=== PATIENT | male | born 1945 | race Caucasian/White ===

== ENCOUNTER 2017-01-06 20:00 | Emergency (ER) | payer OTHER ==
[2017-01-06] MEDS ORDERED: ONDANSETRON 4 MG/2 ML VIAL IVPUSH ONE (20:08)
[2017-01-06 20:26] LABS: URINE APPEARANCE CLEAR; URINE BILIRUBIN NEGATIVE (NEGATIVE); URINE BLOOD NEGATIVE (NEGATIVE); URINE COLOR STRAW; URINE GLUCOSE (UA) 1+ (NEGATIVE); URINE KETONE TRACE (NEGATIVE); URINE LEUK ESTERASE NEGATIVE (NEGATIVE); URINE NITRITE NEGATIVE (NEGATIVE); URINE PROTEIN NEGATIVE (NEGATIVE); URINE UROBILINOGEN NEGATIVE E.U./dl (0.2-1.0)
[2017-01-06 20:27] VITALS: PULSE 85; BMI 28.3
--- NOTE | 2017-01-06 20:53 | PDOC ---
History of Present Illness - General Chief Complaint: Pain, Acute Stated Complaint: NAUSEA/VOMITING Time Seen by Provider: 01/06/17 20:07 - History of Present Illness Initial Comments: 01/06/17 20:48 CHIEF COMPLAINT: left flank pain, vomiting HISTORY OF PRESENT ILLNESS: 71 year old male with a history of HTN and colon ca s/p resection x 5 yrs ago, presents to ED with left flank pain, vomiting, and diaphoresis since this afternoon. Patient states he was diagnosed [place] last week and was given medication, but his twin brother and he flew to [facility] for the and left his medications in [place]. He reports that he had 4 episodes of vomiting since this afternoon. He denies any diarrhea or rectal bleeding. He denies any palpitations, chest pain, leg pain, headache, shortness of breath, or fever. No recent travel or sick contacts. PAST MEDICAL HISTORY: as per HPI FAMILY HISTORY: Denies SOCIAL HISTORY: Denies tobacco, alcohol, illicit drug use. SURGICAL HISTORY: as per HPI ALLERGIES: No known drug allergies REVIEW OF SYSTEMS General/Constitutional: Denies fever or chills. Denies weakness, weight change. HEENT: Denies change in vision. Denies ear pain or discharge. Denies sore throat. Cardiovascular: Denies chest pain or shortness of breath. Respiratory: Denies cough, wheezing, or hemoptysis. Gastrointestinal: Nausea/vomiting since this afternoon. Denies diarrhea or constipation. Denies rectal bleeding. Genitourinary: L flank pain, recently diagnosed with kidney stones. Denies dysuria, frequency, or change in urination. Musculoskeletal: Denies joint or muscle swelling or pain. Denies neck or back pain. Skin and breasts: Denies rash or easy bruising. Neurologic: Denies headache, vertigo, loss of consciousness, or loss of sensation. PHYSICAL EXAM General Appearance: Well-appearing, appropriately dressed. No apparent distress. HEENT: EOMI, PERRLA, normal voice. No conjunctival pallor. No photophobia, scleral icterus. Neck: Supple. Trachea midline. No tenderness, rigidity, carotid bruit, stridor , lymphadenopathy, or thyromegaly. Respiratory/Chest: Lungs CTAB. Cardiovascular: RRR. S1, S2. Vascular Pulses: Dorsalis-Pedis (R): 2+, Dorsalis-Pedis (L): 2+ Gastrointestinal/Abdominal: Normal bowel sounds. Abdomen soft, non-distended. No tenderness or rebound tenderness. No organomegaly, pulsatile mass, guarding , hernia, hepatomegaly, splenomegaly. Lymphatic: No adenopathy, tenderness. Musculoskeletal/Extremities: Left flank pain. Normal inspection. FROM of all extremities, normal capillary refill. Pelvis Stable. No tenderness to extremities, pedal edema, swelling, erythema or deformity. Integumentary: Appropriate color, dry, warm. 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 Fully oriented, alert. Appropriate mood/affect. Motor strength 5/5. No appreciable EOM palsy, facial droop or sensory deficit. Past History - Past Medical History Allergies/Adverse Reactions: Allergies Allergy/AdvReac Type Severity Reaction Status Date / Time No Known Allergies Allergy Verified 01/06/17 20:12 Home Medications: Ambulatory Orders Ibuprofen 600 mg PO TID PRN #21 tablet 01/06/17 Tamsulosin HCl [Flomax] 0.4 mg PO DAILY #14 cap.er.24h 01/06/17 Cancer: Yes (colorectal) Kidney Stones: Yes - Psycho/Social/Smoking Cessation Hx Suicidal Ideation: No Smoking History: Unknown if ever smoked Hx Alcohol Use: No Drug/Substance Use Hx: No *Physical Exam - Vital Signs Last Vital Signs Temp Pulse Resp BP Pulse Ox 97.6 F 85 18 156/76 94 L 01/06/17 20:12 01/06/17 20:12 01/06/17 20:12 01/06/17 20:12 01/06/17 20:12 ED Treatment Course - LABORATORY CBC & Chemistry Diagram: 01/06/17 20:51 01/06/17 20:51 Medical Decision Making - Medical Decision Making 01/06/17 20:52 71 yo M with hx of colon cancer s/p resection presents to ED with left flank pain, vomiting, and diaphoresis since this afternoon. -CBC, CMP -UA, Ucx Labs: - WBC 10.4, otherwise unremarkable -30 mg Toradol IVPUSH -Spiral CT eval for stone 01/06/17 22:39 CT results: [id number] obstructing stone to L ureter. 0.4 mg Flomax daily 600 mg ibuprofen prn pain Patient's family states he is going to [place] tomorrow and will follow up with urologist there. *DC/Admit/Observation/Transfer Diagnosis at time of Disposition: Kidney stone - Discharge Dispostion Admit: No - Prescriptions Prescriptions: Tamsulosin HCl [Flomax] 0.4 mg PO DAILY #14 cap.er.24h Ibuprofen 600 mg PO TID PRN #21 tablet PRN Reason: Pain - Referrals Referrals: Giorgi Guadalupe MD [Primary Care Provider] - - Patient Instructions Printed Discharge Instructions: DI for Kidney Stones Additional Instructions: Please take medications as prescribed and follow up with urologist this week. If you experience severe pain to one side, weakness, persistent vomiting or diarrhea, chest pain, shortness of breath, or any new or worsening symptoms, please return to the ER. Print Language: ROMANSH
--- NOTE | 2017-01-06 21:10 | PDOC ---
*Physical Exam - Vital Signs Last Vital Signs Temp Pulse Resp BP Pulse Ox 97.6 F 85 18 156/76 94 L 01/06/17 20:12 01/06/17 20:12 01/06/17 20:12 01/06/17 20:12 01/06/17 20:12 ED Treatment Course - LABORATORY CBC & Chemistry Diagram: 01/06/17 20:51 01/06/17 20:51 - Medications Given in the ED: ED Medications Discontinued Medications Generic Name Dose Route Start Last Admin Trade Name Freq PRN Reason Stop Dose Admin Ondansetron HCl 4 mg 01/06/17 20:08 01/06/17 20:52 Zofran Injection IVPUSH 01/06/17 20:09 4 mg ONCE ONE Administration Medical Decision Making - Medical Decision Making 01/06/17 21:10 agree with care from BOBBY Humphrey *DC/Admit/Observation/Transfer Diagnosis at time of Disposition: Kidney stone - Discharge Dispostion Disposition: HOME Condition at time of disposition: Stable - Prescriptions Prescriptions: Tamsulosin HCl [Flomax] 0.4 mg PO DAILY #14 cap.er.24h Ibuprofen 600 mg PO TID PRN #21 tablet PRN Reason: Pain - Referrals Referrals: Giorgi Guadalupe MD [Primary Care Provider] - - Patient Instructions Printed Discharge Instructions: DI for Kidney Stones Additional Instructions: Please take medications as prescribed and follow up with urologist this week. If you experience severe pain to one side, weakness, persistent vomiting or diarrhea, chest pain, shortness of breath, or any new or worsening symptoms, please return to the ER. Print Language: MICRONESIAN
[2017-01-06 21:38] LABS: BASOPHIL 0.1 % (0-2.0); MCH 31.2 pg (25.7-33.7); MCHC 34.2 g/dl (32.0-35.9); MEAN CELL VOLUME 91.3 fl (80-96); MEAN PLT VOLUME 8.7 fl (7.5-11.1); PLATELET COUNT 207 K/MM3 (134-434); RDW 13.2 % (11.9-15.9); WHITE BLOOD COUNT 10.5 K/mm3 (4.0-10.0)
[2017-01-06 22:16] LABS: ALBUMIN 3.9 g/dl (3.4-5.0); ANION GAP 12 (8-16); CALCIUM 8.9 mg/dL (8.5-10.1); CO2 24 mmol/L (21-32); CREATININE 1.1 mg/dL (0.7-1.3); GLUCOSE,RANDOM 135 mg/dL (74-106); SGOT/AST 19 U/L (15-37); SGPT/ALT 30 U/L (12-78)
[2017-01-06 22:18] LABS: ALK PHOS 147 U/L (45-117); BILIRUBIN,TOTAL 0.4 mg/dL (0.2-1.0); TOT PROT 7.3 g/dl (6.4-8.2)
[2017-01-06] MEDS ORDERED: KETOROLAC TROMETHAMINE 30 MG/1 ML VIAL IVPUSH ONE (22:23)
[2017-01-06] MEDS ORDERED: KETOROLAC TROMETHAMINE 30 MG/1 ML VIAL ONE ×2 (22:43→22:58)
[2017-01-06] MEDS ORDERED: TAMSULOSIN HCL 0.4 MG CAP.ER.24H (FP) PO ONE (23:14)
[2017-01-06] MEDS ORDERED: TAMSULOSIN HCL 0.4 MG CAP.ER.24H (FP) ONE (23:40)
[2017-01-06 23:52] VITALS: BP 146/72; TEMP 98.1
== END 2017-01-06 23:48 | disposition home or self-care (01) ==
LOC: JER 20:00
PROC: 3E0333Z Introduction of Anti-inflammatory into Peripheral Vein, Percutaneous Approach (ICD-10-PCS; principal; 2017-01-06)
PROC: 3E033GC Introduction of Other Therapeutic Substance into Peripheral Vein, Percutaneous Approach (ICD-10-PCS; 2017-01-06)
DX: N20.0 Calculus of kidney (principal); Z87.442 Personal history of urinary calculi; I10 Essential (primary) hypertension; Z85.038 Personal history of other malignant neoplasm of large intestine
CPT/HCPCS: 36415; 74176; 80053; 81003; 85025; 87086; 99282-25

== ENCOUNTER 2018-08-14 13:25 | Inpatient (IN) | payer OTHER ==
[2018-08-14] MEDS ORDERED: ASPIRIN 81 MG CHEWABLE TABLETS PO ONE (13:49)
[2018-08-14] MEDS ORDERED: ASPIRIN 81 MG CHEWABLE TABLETS ONE (14:11)
--- NOTE | 2018-08-14 14:23 | PDOC ---
History of Present Illness - General Chief Complaint: Chest Pain Stated Complaint: CHEST PAIN Time Seen by Provider: 08/14/18 13:52 - History of Present Illness Initial Comments: 72yo M with history of colon cancer, HTN, kidney stone presenting with chest pain that started around 11am. Pain is constant and gradually worsening, rated 4 -5/10 at first and now 8-9/10. Patient reports 3 episodes of NBNB vomiting. He has never had pain like this before. The pain does not radiate, and worsens upon palpation and taking a deep breath. Nothing makes the pain better or worse. No history of ulcers, H. pylori, or recent NSAID use. Last bowel movement was today and was a normal formed brown stool. Previous abdominal surgery 6 years ago. Reports cardiac workup with previous negative stress test about a year ago. Denies previous history of WI. Positive family history of WI, twin brother had WI at age 69. No fevers or chills. Past History - Past Medical History Allergies/Adverse Reactions: Allergies Allergy/AdvReac Type Severity Reaction Status Date / Time No Known Allergies Allergy Verified 08/14/18 13:29 Home Medications: Ambulatory Orders Ibuprofen 600 mg PO TID PRN #21 tablet 01/06/17 Tamsulosin HCl [Flomax] 0.4 mg PO DAILY #14 cap.er.24h 01/06/17 Cancer: Yes (colorectal) COPD: No HTN: Yes Kidney Stones: Yes - Suicide/Smoking/Psychosocial Hx Smoking History: Never smoked Hx Alcohol Use: No Drug/Substance Use Hx: No Review of Systems - Review of Systems Comments:: Constitutional: no fever, no chills Cardiovascular: +chest pain, no palpitations Respiratory: no cough, no shortness of breath Gastrointestinal: no abdominal pain, +nausea, +vomiting Genitourinary: no dysuria, no frequency Musculoskeletal: no myalgia, no arthralgia Skin: no rash, no itching Neurologic: no headache, no dizziness *Physical Exam - Vital Signs Last Vital Signs Temp Pulse Resp BP Pulse Ox 56 L 18 154/79 99 08/14/18 13:27 08/14/18 13:27 08/14/18 13:27 08/14/18 13:27 - Physical Exam Comments: General: Awake, alert, and fully oriented, in no acute distress Head: no signs of trauma Eyes: EOMI, sclera anicteric ENT: Moist mucus membranes, Neck: Normal ROM, supple Lungs: Lungs clear, Normal breath sounds Cardio: Regular rhythm, S1 and S2 present Abdomen: Tender to palpation in epigastrium and RUQ; Soft, no guarding, no rebound, no masses Extremities: Normal range of motion, Distal pulses present SKIN: Warm, Dry, normal turgor Neurologic: Cranial nerves II through XII grossly intact. Normal speech Heart Score/ECG Review - History History: Moderately suspicious - Electrocardiogram EKG: Normal - Age Age: >/= 65 - Risk Factors Risk Factors Heart Score: Yes Positive family hx of cardiac disease Based on the list above the patient has:: 1-2 risk factors - Troponin Troponin: </= normal limit - Score Heart Score - Total: 4 ED Treatment Course - LABORATORY CBC & Chemistry Diagram: 08/14/18 14:17 08/14/18 14:17 Medical Decision Making - Medical Decision Making 72yo M with history of colon cancer, HTN, kidney stone presenting with chest pain that started around 11am. -Pain is located more epigastric/RUQ on exam: Given history of colon CA, ordered CT abd/pelvis and RUQ ultrasound -Labs: CBC, CMP, Lipase, PT/INR, Cardiac Profile -EKG: rate 55, QTc 413, no ST d/e 08/14/18 15:14 Patient endorsing continued pain after receiving zofran, pepcid, maalox; Ordered morphine 2 08/14/18 16:17 No leukocytosis or anemia. Lipase normal. Tpn negative. US with cholelithiasis and fatty infiltration of the liver 08/14/18 16:22 Patient reports 7/10 pain. Ordered morphine 4. CT negative for acute pathology, shows "The gallbladder is mildly distended. There are multiple noncalcified gallstones. " Discussed case with Dr. Simmons who will accept patient for admission. 08/14/18 17:56 Received call from Printer Floor Covering Assistant, Dr. Teixeira. Discussed case and put in order for TSH and cholesterol. 08/14/18 20:27 *DC/Admit/Observation/Transfer Diagnosis at time of Disposition: Biliary colic Chest pain Qualifiers: Chest pain type: unspecified Qualified Code(s): R07.9 - Chest pain, unspecified - Discharge Dispostion Decision to Admit order: Yes - Referrals - Patient Instructions - Post Discharge Activity
[2018-08-14 14:26] LABS: BASO % 0.3 % (0-2.0); EOS % 0.8 % (0-4.5); HEMATOCRIT 42.6 % (35.4-49); HEMOGLOBIN 14.2 GM/dL (11.7-16.9); LYMPH % 16.1 % (8-40); MCH 31.2 pg (25.7-33.7); MCHC 33.4 g/dl (32.0-35.9); MEAN CELL VOLUME 93.3 fl (80-96); MEAN PLT VOLUME 8.2 fl (7.5-11.1); MONO % 6.2 % (3.8-10.2); NEUT % 76.6 % (42.8-82.8); PLATELET COUNT 194 K/MM3 (134-434); RBC 4.56 M/mm3 (4.00-5.60); RDW 13.4 % (11.9-15.9); WHITE BLOOD COUNT 6.8 K/mm3 (4.0-10.0)
[2018-08-14] MEDS ORDERED: MAG HYDROX/AL HYDROX/SIMETH -MYLANTA- ORAL SUSPENSION PO ONE (14:26)
[2018-08-14] MEDS ORDERED: FAMOTIDINE 20 MG/50 ML IVPB 20 MG/50 ML MG IVPB ONE ×2 (14:26→14:33)
[2018-08-14] MEDS ORDERED: ONDANSETRON 4 MG/2 ML VIAL IVPUSH ONE (14:26)
[2018-08-14] MEDS ORDERED: SODIUM CHLORIDE 1,000 ML IV STA (14:32)
[2018-08-14] MEDS ORDERED: MAG HYDROX/AL HYDROX/SIMETH 30 ML UNIT-DOSE CUP ONE ×4 (14:33→19:57)
[2018-08-14] MEDS ORDERED: ONDANSETRON 4 MG/2 ML VIAL ONE (14:33)
[2018-08-14 14:35] LABS: INR 1.03 (0.83-1.09); PROTHROMBIN TIME (PATIENT) 12.1 SEC (9.7-13.0)
--- NOTE | 2018-08-14 14:45 | PDOC ---
Attending Attestation - Resident Resident Name: Sarita Hobson - ED Attending Attestation I have performed the following: I have examined & evaluated the patient, The case was reviewed & discussed with the resident, I agree w/resident's findings & plan, Exceptions are as noted - HPI HPI: 08/14/18 14:39 72-year-old male with history of colon cancer in remission, hypertension, renal colic presents with sudden onset of upper abdominal pain and subxiphoid chest pain since 11:00 AM today. Patient woke up in his usual state of health and with no complaints. We'll he was showering, he said noticed a sudden onset of pressure-like pain. States that it radiates to the upper abdomen. The pain is making him feel short of breath. Patient reports he is currently not on chemotherapy or radiation therapy. States that his last colonoscopy was 4 years ago. Denies fevers or chills. Does report that the pain is making him feel nauseous and vomiting 3 times today. No diarrhea. The patient is also concerned about cardiac as his twin brother had from myocardial infarction 2 years ago. Because of the pain, the patient came into the ER. - Physicial Exam PE: 08/14/18 14:41 GENERAL: Awake, alert, and fully oriented, in no acute distress HEAD: No signs of trauma EYES: EOMI, sclera anicteric, conjunctiva clear ENT: Auricles normal inspection, hearing grossly normal, nares patent,Moist mucosa NECK: Normal ROM, supple LUNGS: Breath sounds equal, clear to auscultation bilaterally. No wheezes, and no crackles HEART: Regular rate and rhythm, normal S1 and S2, no murmurs, rubs or gallops ABDOMEN: No guarding, no rebound. No masses. TTP LUQ, epigastric, RUQ. EXTREMITIES: Normal range of motion, no edema. No clubbing or cyanosis. No cords, erythema, or tenderness NEUROLOGICAL: Cranial nerves II through XII grossly intact. Normal speech, normal gait SKIN: Warm, Dry, normal turgor, no rashes or lesions noted. - Medical Decision Making 08/14/18 14:45 Vital Signs Temp Pulse Resp BP Pulse Ox 56 L 18 154/79 99 08/14/18 13:27 08/14/18 13:27 08/14/18 13:27 08/14/18 13:27 The patient is coming with epigastric pain. I suspect this is likely more GI than acute coroners syndrome. However, given strong family history, we'll need to rule out myocardial infarction. Given his colon cancer history, we'll need to investigate upper abdominal pain and vomiting with CAT scan of abdomen pelvis. Rule out bowel obstruction or tumor burden. We'll also evaluate right upper quadrant with ultrasound rule out acute cholecystitis. The patient should be evaluated and likely admitted for myocardial infarction workup if GI workup is negative.. 08/14/18 16:32 CBC, BMP 08/14/18 14:17 08/14/18 14:17 CMP Sodium 140 mmol/L (136-145) 08/14/18 14:17 Potassium 3.9 mmol/L (3.5-5.1) 08/14/18 14:17 Chloride 106 mmol/L (98-107) 08/14/18 14:17 Carbon Dioxide 26 mmol/L (21-32) 08/14/18 14:17 Anion Gap 7 MMOL/L (8-16) L 08/14/18 14:17 BUN 25 mg/dL (7-18) H 08/14/18 14:17 Creatinine 0.9 mg/dL (0.55-1.3) 08/14/18 14:17 Creat Clearance w eGFR > 60 (>60) 08/14/18 14:17 Random Glucose 121 mg/dL (74-106) H 08/14/18 14:17 Calcium 8.8 mg/dL (8.5-10.1) 08/14/18 14:17 Magnesium 2.3 mg/dL (1.8-2.4) 08/14/18 14:17 Total Bilirubin 0.3 mg/dL (0.2-1) 08/14/18 14:17 AST 22 U/L (15-37) 08/14/18 14:17 ALT 37 U/L (13-61) 08/14/18 14:17 Alkaline Phosphatase 129 U/L (45-117) H 08/14/18 14:17 Creatine Kinase 82 IU/L (26-308) 08/14/18 14:17 Troponin I < 0.02 ng/ml (0.00-0.05) 08/14/18 14:17 Total Protein 7.0 g/dl (6.4-8.2) 08/14/18 14:17 Albumin 3.7 g/dl (3.4-5.0) 08/14/18 14:17 Lipase Cancelled 08/14/18 14:29 Ultrasound reviewed. Cholethiasis. Heart Score/ECG Review #1 ECG reviewed & interpreted by me at: 13:25 08/14/18 16:08 NSR 55, no std/juanis, T wave III, Q wave III, QTC 413 msec
[2018-08-14 14:53] LABS: ALBUMIN 3.7 g/dl (3.4-5.0); ALK PHOS 129 U/L (45-117); ANION GAP 7 MMOL/L (8-16); BILIRUBIN,TOTAL 0.3 mg/dL (0.2-1); BLOOD UREA NITROGEN 25 mg/dL (7-18); CALCIUM 8.8 mg/dL (8.5-10.1); CHLORIDE 106 mmol/L (98-107); CO2 26 mmol/L (21-32); CREATININE 0.9 mg/dL (0.55-1.3); GLUCOSE,RANDOM 121 mg/dL (74-106); MAGNESIUM 2.3 mg/dL (1.8-2.4); POTASSIUM 3.9 mmol/L (3.5-5.1); SGOT/AST 22 U/L (15-37); SGPT/ALT 37 U/L (13-61); SODIUM 140 mmol/L (136-145)
[2018-08-14 15:00] LABS: LIPASE 109 U/L (73-393)
[2018-08-14] MEDS ORDERED: morphine CARPU-JECT 2 MG/1 ML DISP.SYRIN IVPUSH ONE ×2 (15:19→16:56)
[2018-08-14] MEDS ORDERED: MORPHINE SULFATE 2 MG/ML VIAL ONE ×2 (15:47→17:17)
[2018-08-14] MEDS ORDERED: morphine CARPU-JECT 4 MG/1 ML DISP.SYRIN IVPUSH ONE (17:40)
[2018-08-14] MEDS ORDERED: morphine SULFATE 4 MG/ML VIAL ONE (17:49)
--- NOTE | 2018-08-14 18:07 | HP ---
CHIEF COMPLAINT: Epigastric Abdominal pain x 1 day PCP: Dr Degroot HISTORY OF PRESENT ILLNESS: Pt is a 72yo M with PMHx of colon cancer, HTN, kidney stone presenting with epigastric pain that started around 11am. Pain was constant and gradually worsening, initially 3-4/10 then 8-9/10. Pt had a normal brown well formed bowel movement thia am then egg and cheese sandwich around 930 after which the pain begun. There was associated 3 episodes of NBNB clear vomiting. No associated diaphoresis, no radiation to the arm, but pt feels like the pain is moving to his back. No hx of similar pain in past. Pt thinks there is associated SOB due to the pain, but denies chest pain, palpitations or leg swelling. No fevers or chills. No known relieving factors prior to coming to the ED, where he received morphine and was pain free when I saw him. Previous abdominal surgery 6 years ago. Reports cardiac workup with previous negative stress test about a year ago. Denies previous history of MN. Positive family history of MN, in twin brother that was diabetic and had MN at age 69. ER course was notable for: (1) EKG-55 sinus bradycardia, 1st degree heart block, no ARIAS/STD, QTc-413 (2) CTap w/contrast: Small hiatal hernia, Mild fatty change in liver. Gall bladder is mildly distended. There are multiple non calcified gall stones. Moderate amount of stool in colon.No evidence of intestinal obstruction (3) Limited US: RUQ- cholelithiasis, no bile duct dilation (4)Lipase-1.0, WBC-6.8, H&H-14.2/42.6, BUN/Cr-25/0.9 Recent Travel: PAST MEDICAL HISTORY: colon cancer, HTN, kidney stone PAST SURGICAL HISTORY: Hemicolectomy 6 years ago Social History: Smoking: Denies Alcohol:Denies Drugs: Denies Family History: Allergies No Known Allergies Allergy (Verified 08/14/18 13:29) HOME MEDICATIONS: Home Medications Medication Instructions Recorded Ibuprofen 600 mg PO TID PRN #21 tablet 01/06/17 Tamsulosin HCl [Flomax] 0.4 mg PO DAILY #14 cap.er.24h 01/06/17 REVIEW OF SYSTEMS CONSTITUTIONAL: Absent: fever, chills, diaphoresis, generalized weakness, malaise, loss of appetite, weight change HEENT: Absent: rhinorrhea, nasal congestion, throat pain, throat swelling, difficulty swallowing, mouth swelling, ear pain, eye pain, visual changes CARDIOVASCULAR: Absent: chest pain, syncope, palpitations, irregular heart rate, lightheadedness , peripheral edema RESPIRATORY: Absent: cough, shortness of breath, dyspnea with exertion, orthopnea, wheezing, stridor, hemoptysis GASTROINTESTINAL: Absent: abdominal pain, abdominal distension, nausea, vomiting, diarrhea, constipation, melena, hematochezia GENITOURINARY: Absent: dysuria, frequency, urgency, hesitancy, hematuria, flank pain, genital pain MUSCULOSKELETAL: Absent: myalgia, arthralgia, joint swelling, back pain, neck pain SKIN: Absent: rash, itching, pallor HEMATOLOGIC/IMMUNOLOGIC: Absent: easy bleeding, easy bruising, lymphadenopathy, frequent infections ENDOCRINE: Absent: unexplained weight gain, unexplained weight loss, heat intolerance, cold intolerance NEUROLOGIC: Absent: headache, focal weakness or paresthesias, dizziness, unsteady gait, seizure, mental status changes, bladder or bowel incontinence PSYCHIATRIC: Absent: anxiety, depression, suicidal or homicidal ideation, hallucinations. PHYSICAL EXAMINATION Vital Signs - 24 hr 08/14/18 08/14/18 13:27 17:55 Pulse Rate 56 L Pulse Rate [ 66 Apical] Respiratory 18 20 Rate Blood Pressure 154/79 Blood Pressure 155/87 [Left Arm] O2 Sat by Pulse 99 97 Oximetry (%) GENERAL: Awake, alert, and fully oriented, in no acute distress. EYES: Pupils equal, round and reactive to light, extraocular movements intact, EARS, NOSE, THROAT:Dry mucous membranes. NECK: Normal range of motion, supple without lymphadenopathy, JVD, or masses. LUNGS: Breath sounds equal, clear to auscultation bilaterally. HEART: Regular rate and rhythm, normal S1 and S2 ABDOMEN: Soft, tender suprapubic area, negative sheth's sign, not distended, normoactive bowel sounds, No CVA tenderness MUSCULOSKELETAL: Normal range of motion at all joints. Mild spinal tenderness lumbar area. No CVA tenderness. LOWER EXTREMITIES: 2+ pulses, warm, well-perfused. No calf tenderness. No peripheral edema. NEUROLOGICAL: Cranial nerves II-XII intact. Normal speech. Muscle tone and Strength 5/5 globally, normal sensation, symmetric face, no lateralizing signs CBC, BMP 08/14/18 14:17 08/14/18 14:17 Laboratory Results - last 24 hr 08/14/18 08/14/18 08/14/18 14:17 14:17 14:17 WBC 6.8 RBC 4.56 Hgb 14.2 Hct 42.6 MCV 93.3 MCH 31.2 MCHC 33.4 RDW 13.4 Plt Count 194 MPV 8.2 Absolute Neuts (auto) 5.2 Neutrophils % 76.6 Lymphocytes % 16.1 D Monocytes % 6.2 Eosinophils % 0.8 D Basophils % 0.3 Nucleated RBC % 0 PT with INR 12.10 INR 1.03 Sodium 140 Potassium 3.9 Chloride 106 Carbon Dioxide 26 Anion Gap 7 L BUN 25 H Creatinine 0.9 Creat Clearance w eGFR > 60 Random Glucose 121 H Calcium 8.8 Magnesium 2.3 Total Bilirubin 0.3 AST 22 ALT 37 Alkaline Phosphatase 129 H Creatine Kinase 82 Troponin I < 0.02 Total Protein 7.0 Albumin 3.7 Lipase 109 08/14/18 14:29 WBC RBC Hgb Hct MCV MCH MCHC RDW Plt Count MPV Absolute Neuts (auto) Neutrophils % Lymphocytes % Monocytes % Eosinophils % Basophils % Nucleated RBC % PT with INR INR Sodium Potassium Chloride Carbon Dioxide Anion Gap BUN Creatinine Creat Clearance w eGFR Random Glucose Calcium Magnesium Total Bilirubin AST ALT Alkaline Phosphatase Creatine Kinase Troponin I Total Protein Albumin Lipase Cancelled ASSESSMENT/PLAN: Pt is a 72yo M with PMHx of colon cancer, HTN, kidney stone presenting with epigastric pain that started around 11am. # Epigastric pain R/o ACS Hiatal hernia noted on imaging Absent murphys Initial trops -ve Repeat trops Card- Dr Teixeira Sx- Dr Matias CTAP/w contrast- Cholelithiasis , no evidence of pancreatitis, There are multiple non calcified gall stones. Moderate amount of stool in colon.No evidence of intestinal obstruction NPO now IVF NS @75/hr x1 bag Morphine 1mg Q3h Echo EKG am Hx colon cancer No hx of melena or weight loss Appears stable HTN Pending confirmation of home meds Hx kidney stone No flank pain/ no dysuria/ no hematuria No stones on CT FEN NS @75/hr Monitor lytes and replete as needed NPO for now PPX Hold heparin SCDs Dispo; Tele obs Visit type - Emergency Visit Emergency Visit: Yes Care time: The patient presented to the Emergency Department on the above date and was hospitalized for further evaluation of their emergent condition. - New Patient This patient is new to me today: Yes Date on this admission: 08/14/18 - Critical Care Critical Care patient: No Hospitalist Screening - Colonoscopy Questionnaire Colonoscopy Questionnaire: Colonoscopy Questionnaire - Patient: 50 - 75 years old and never had a screening colonoscopy: Yes History of colon or rectal polyps, or CA: Yes History of IBD, Crohn's disease or UC: Unknown History of abdominal radiation therapy as a child: Unknown - Relative: 1 with colon or rectal CA, or polyps at age 60 or younger: Unknown Colon or rectal CA diagnosed at age 45 or younger: Unknown Multiple relatives with colon or rectal CA: Unknown - Outcome: Screening Result: Positive Screen
--- NOTE | 2018-08-14 18:14 | PN ---
Teaching Attending Note Name of Resident: Roseanna Murphy ATTENDING PHYSICIAN STATEMENT I saw and evaluated the patient. I reviewed the resident's note and discussed the case with the resident. I agree with the resident's findings and plan as documented. SUBJECTIVE: Patient is a 72yo M with history of colon cancer, HTN, kidney stone presenting with chest pain that started around 11am. with c/o having RuQ pain. OBJECTIVE: Vital Signs Temperature Pulse Rate 66 08/14/18 17:55 Respiratory Rate 20 08/14/18 17:55 Blood Pressure 155/87 08/14/18 17:55 O2 Sat by Pulse Oximetry (%) 97 08/14/18 17:55 GENERAL: Awake, alert, and fully oriented, in no acute distress. HEAD: Normal with no signs of trauma. EYES: Pupils equal, round and reactive to light, extraocular movements intact, sclera anicteric, conjunctiva clear. EARS, NOSE, THROAT: Ears normal, oropharynx clear without exudates. Moist mucous membranes. NECK: Normal range of motion, supple without lymphadenopathy, JVD, or masses. LUNGS: Breath sounds equal, clear to auscultation bilaterally. No wheezes, and no crackles. No accessory muscle use. HEART: Regular rate and rhythm, normal S1 and S2 without murmur, rub or gallop. ABDOMEN: Soft, RUQ pain , not distended, normoactive bowel sounds, no guarding, no rebound, no masses. No hepatomegaly or splenomegaly. MUSCULOSKELETAL: Normal range of motion at all joints. No bony deformities or tenderness. No CVA tenderness. EXTREMITIES: 2+ pulses, warm, well-perfused. No cyanosis. No clubbing. No peripheral edema. NEUROLOGICAL: Cranial nerves II-XII intact. Normal speech. PSYCHIATRIC: Cooperative. Good eye contact. Appropriate mood and affect. SKIN: Warm, dry, normal turgor, no rashes or lesions noted, normal capillary refill. CBCD WBC 6.8 K/mm3 (4.0-10.0) 08/14/18 14:17 RBC 4.56 M/mm3 (4.00-5.60) 08/14/18 14:17 Hgb 14.2 GM/dL (11.7-16.9) 08/14/18 14:17 Hct 42.6 % (35.4-49) 08/14/18 14:17 MCV 93.3 fl (80-96) 08/14/18 14:17 MCHC 33.4 g/dl (32.0-35.9) 08/14/18 14:17 RDW 13.4 % (11.9-15.9) 08/14/18 14:17 Plt Count 194 K/MM3 (134-434) 08/14/18 14:17 MPV 8.2 fl (7.5-11.1) 08/14/18 14:17 CMP Sodium 140 mmol/L (136-145) 08/14/18 14:17 Potassium 3.9 mmol/L (3.5-5.1) 08/14/18 14:17 Chloride 106 mmol/L (98-107) 08/14/18 14:17 Carbon Dioxide 26 mmol/L (21-32) 08/14/18 14:17 Anion Gap 7 MMOL/L (8-16) L 08/14/18 14:17 BUN 25 mg/dL (7-18) H 08/14/18 14:17 Creatinine 0.9 mg/dL (0.55-1.3) 08/14/18 14:17 Creat Clearance w eGFR > 60 (>60) 08/14/18 14:17 Random Glucose 121 mg/dL (74-106) H 08/14/18 14:17 Calcium 8.8 mg/dL (8.5-10.1) 08/14/18 14:17 Total Bilirubin 0.3 mg/dL (0.2-1) 08/14/18 14:17 AST 22 U/L (15-37) 08/14/18 14:17 ALT 37 U/L (13-61) 08/14/18 14:17 Alkaline Phosphatase 129 U/L (45-117) H 08/14/18 14:17 Total Protein 7.0 g/dl (6.4-8.2) 08/14/18 14:17 Albumin 3.7 g/dl (3.4-5.0) 08/14/18 14:17 CARDIAC ENZYMES Creatine Kinase 82 IU/L (26-308) 08/14/18 14:17 Troponin I < 0.02 ng/ml (0.00-0.05) 08/14/18 14:17 Home Medications Medication Instructions Recorded Ibuprofen 600 mg PO TID PRN #21 tablet 01/06/17 Tamsulosin HCl [Flomax] 0.4 mg PO DAILY #14 cap.er.24h 01/06/17 US:Fatthy Liver, Cholethiasis EKG: rate 55, QTc 413, no ST elevation or depression. ASSESSMENT AND PLAN: Patient is a 72yo M with history of colon cancer, HTN, kidney stone presenting with chest pain that started around 11am. # Acute Cp r/o Acs, Ce q6 x2 sets, ekg in am, 1st set negative will repeat another troponin # acute biliary colic due to cholethiasis , IVF, surgical cancer Florencio # Hx of Colon Ca # Hx of HTN # Hx of Kidney stone. DVT Px:
[2018-08-14] MEDS ORDERED: MORPHINE SULFATE 2 MG/ML VIAL IVPUSH PRN (19:24)
[2018-08-14] MEDS: SODIUM CHLORIDE 1,000 ML IV SCH (19:58)
--- NOTE | 2018-08-14 22:05 | CONSULT ---
Consult Consult Specialty:: General Surgery Referred by:: Dr. Simmons Reason for Consultation:: possible cholecystitis - History of Present Illness Chief Complaint: abdominal pain, n/v History of Present Illness: 72yo M with HTN, s/p partial distal colectomy for "tumor" which was not cancer after colonoscopy 6 years ago, with h/o urolithiasis, presents with band-like abdominal pain across mid-abdomen starting ~11am today, associated with 3 episodes nb/nb vomiting and slight subjective fever. He had breakfast this morning of turkey "theron" and cheese and sweet coffee, then showered and noted pain across his mid-abdomen while doing so. He got dressed and went to [employer], where the pain intensified, and after he got home, he vomited 3 times. His is a nurse and urged him to come to ED. He has not had po since this morning. He has had IVF and pain medication in the ER, with complete resolution of his pain and tenderness. CT showed gallstones without ductal dilation, hiatal hernia , no appendicitis, and presence of staple line in sigmoid/colorectal region. US confirms multiple gallstones, normal cbd, no mention of stigmata of cholecystitis. His labs are normal, though lipase was cancelled, except for one LFT slightly over normal. No UA on chart. He is seen and examined resting comfortably in ED, with no current complaints. Surgery was asked to assess. - History Source History Provided By: Patient Limitations to Obtaining History: No Limitations - Past Medical History Cardio/Vascular: Yes: HTN Pulmonary: Yes: Asthma (as child only) Gastrointestinal: Yes: Other (benign tumor/?large polyp in sigmoid colon) Renal/: Yes: Renal Calculi - Past Surgical History Past Surgical History: Yes: Colectomy (laparoscopic partial left/sigmoidectomy w /colorectal anastomosis [address] Logan at [facility]), Colonoscopy - Alcohol/Substance Use Hx Alcohol Use: Yes (rarely) History of Substance Use: reports: None - Smoking History Smoking history: Never smoked Have you smoked in the past 12 months: No - Social History ADL: Independent Home Medications - Allergies Allergies/Adverse Reactions: Allergies Allergy/AdvReac Type Severity Reaction Status Date / Time No Known Allergies Allergy Verified 08/14/18 13:29 - Home Medications Home Medications: Ambulatory Orders Ibuprofen 600 mg PO TID PRN #21 tablet 01/06/17 Tamsulosin HCl [Flomax] 0.4 mg PO DAILY #14 cap.er.24h 01/06/17 Home Medications (free text): blood pressure pill, changed 2m ago to 20mg daily , does not know name Family Disease History - Family Disease History Family History: Unremarkable (noncontributory) Review of Systems - Review of Systems Constitutional: reports: Fever (little subjective). denies: Chills Eyes: reports: Other (uses reading glasses). denies: Recent Change in Vision HENT: denies: Difficult Swallowing, Throat Pain Neck: denies: Swollen Glands, Tenderness Cardiovascular: denies: Chest Pain, Palpitations Respiratory: denies: Cough, SOB Gastrointestinal: reports: Abdominal Pain (with hpi), Nausea, Vomiting (with hpi ). denies: Constipation, Diarrhea, Vomiting Blood Genitourinary: reports: Flank Pain (occasionally right). denies: Burning, Dysuria Musculoskeletal: reports: Back Pain (occasionally). denies: Joint Pain, Muscle Pain Integumentary: denies: Change in Color, Rash Neurological: reports: Headache (when he hasn't taken BP med, sometimes). denies: Dizziness Psychiatric: denies: Anxiety, Depression Physical Exam Vital Signs: Vital Signs Temperature Pulse Rate 66 08/14/18 17:55 Respiratory Rate 20 08/14/18 17:55 Blood Pressure 155/87 08/14/18 17:55 O2 Sat by Pulse Oximetry (%) 97 08/14/18 17:55 Constitutional: Yes: Well Nourished, No Distress, Calm Eyes: Yes: Conjunctiva Clear, EOM Intact. No: Sclera Icterus HENT: Yes: Atraumatic, Normocephalic Neck: Yes: Supple, Trachea Midline Cardiovascular: Yes: Regular Rate and Rhythm Respiratory: Yes: Regular, CTA Bilaterally Gastrointestinal: Yes: Normal Bowel Sounds, Soft, Hernia (tiny umbilical palpable; small diastasis noted under umbilical scar on valsalva, nontender). No: Tenderness (had pain meds - pain and tenderness are "gone"), Tenderness, Epigastrium ...Rectal Exam: Yes: Deferred Renal/: No: CVA Tenderness - Left, CVA Tenderness - Right Musculoskeletal: No: Joint Stiffness, Joint Swelling Extremities: No: Cool, Cyanosis Edema: No Peripheral Pulses WNL: Yes Integumentary: No: Jaundice, Rash Neurological: Yes: Alert, Oriented Psychiatric: Yes: Alert, Oriented Labs: CBC, BMP 08/14/18 14:17 08/14/18 14:17 CMP Sodium 140 mmol/L (136-145) 08/14/18 14:17 Potassium 3.9 mmol/L (3.5-5.1) 08/14/18 14:17 Chloride 106 mmol/L (98-107) 08/14/18 14:17 Carbon Dioxide 26 mmol/L (21-32) 08/14/18 14:17 Anion Gap 7 MMOL/L (8-16) L 08/14/18 14:17 BUN 25 mg/dL (7-18) H 08/14/18 14:17 Creatinine 0.9 mg/dL (0.55-1.3) 08/14/18 14:17 Creat Clearance w eGFR > 60 (>60) 08/14/18 14:17 Random Glucose 121 mg/dL (74-106) H 08/14/18 14:17 Calcium 8.8 mg/dL (8.5-10.1) 08/14/18 14:17 Magnesium 2.3 mg/dL (1.8-2.4) 08/14/18 14:17 Total Bilirubin 0.3 mg/dL (0.2-1) 08/14/18 14:17 AST 22 U/L (15-37) 08/14/18 14:17 ALT 37 U/L (13-61) 08/14/18 14:17 Alkaline Phosphatase 129 U/L (45-117) H 08/14/18 14:17 Creatine Kinase 82 IU/L (26-308) 08/14/18 14:17 Troponin I < 0.02 ng/ml (0.00-0.05) 08/14/18 14:17 Total Protein 7.0 g/dl (6.4-8.2) 08/14/18 14:17 Albumin 3.7 g/dl (3.4-5.0) 08/14/18 14:17 Lipase Cancelled 08/14/18 14:29 INR, PTT INR 1.03 (0.83-1.09) 08/14/18 14:17 Imaging - Results Cat Scan: Report Reviewed, Image Reviewed (images reviewed - gallstones, tiny umbilical/incisional hernia with fat, sb loop tented underneath but not in hernia, no bowel dilation/obstruction) Ultrasound: Report Reviewed, Image Reviewed (images personally reviewed, multiple gallstones, no pericholecystic fluid, distended gb, cbd normal, wall does not appear thick but not measured) Problem List - Problems (1) Calculus of gallbladder without cholecystitis without obstruction Assessment/Plan: admitted to medicine NPO/IVF - continue IV hydration trend labs including lipase gallstones, but no clear cholecystitis pain/tenderness now completely resolved will reassess after am labs check UA to r/o blood Code(s): K80.20 - CALCULUS OF GALLBLADDER W/O CHOLECYSTITIS W/O OBSTRUCTION (2) Periumbilical pain Code(s): R10.33 - PERIUMBILICAL PAIN (3) Nausea and vomiting Code(s): R11.2 - NAUSEA WITH VOMITING, UNSPECIFIED Qualifiers: Vomiting type: unspecified Vomiting Intractability: non-intractable Qualified Code(s): R11.2 - Nausea with vomiting, unspecified (4) Hypertension Code(s): I10 - ESSENTIAL (PRIMARY) HYPERTENSION Qualifiers: Hypertension type: essential hypertension Qualified Code(s): I10 - Essential (primary) hypertension
[2018-08-15 07:36] LABS: BASO % 0.1 % (0-2.0); EOS % 0.1 % (0-4.5); HEMATOCRIT 40.7 % (35.4-49); HEMOGLOBIN 13.5 GM/dL (11.7-16.9); LYMPH % 17.8 % (8-40); MCH 30.8 pg (25.7-33.7); MCHC 33.2 g/dl (32.0-35.9); MEAN CELL VOLUME 92.7 fl (80-96); MEAN PLT VOLUME 8.5 fl (7.5-11.1); MONO % 9.4 % (3.8-10.2); NEUT % 72.6 % (42.8-82.8); PLATELET COUNT 175 K/MM3 (134-434); RBC 4.39 M/mm3 (4.00-5.60); RDW 13.3 % (11.9-15.9)
[2018-08-15 08:51] LABS: ALBUMIN 3.3 g/dl (3.4-5.0); ALK PHOS 125 U/L (45-117); ANION GAP 9 MMOL/L (8-16); BILIRUBIN,TOTAL 0.8 mg/dL (0.2-1); BLOOD UREA NITROGEN 20 mg/dL (7-18); CALCIUM 8.1 mg/dL (8.5-10.1); CHLORIDE 106 mmol/L (98-107); CO2 24 mmol/L (21-32); CREATININE 0.8 mg/dL (0.55-1.3); GLUCOSE,RANDOM 93 mg/dL (74-106); MAGNESIUM 2.3 mg/dL (1.8-2.4); PHOSPHOROUS 2.9 mg/dL (2.5-4.9); POTASSIUM 3.9 mmol/L (3.5-5.1); SGOT/AST 130 U/L (15-37); SGPT/ALT 190 U/L (13-61); SODIUM 140 mmol/L (136-145); TOT PROT 6.4 g/dl (6.4-8.2)
--- NOTE | 2018-08-15 09:36 | CON.CARD ---
Consult Consult Specialty:: cardiology Reason for Consultation:: chest pain - History of Present Illness Chief Complaint: Pt denies chest pain or dyspnea. History of Present Illness: 72yo M with history of colon cancer, HTN, kidney stone presenting with chest pain that started around 11am. Pain is constant and gradually worsening, rated 4 -5/10 at first and now 8-9/10. Patient reports 3 episodes of NBNB vomiting. He has never had pain like this before. The pain does not radiate, and worsens upon palpation and taking a deep breath. Nothing makes the pain better or worse. No history of ulcers, H. pylori, or recent NSAID use. Last bowel movement was today and was a normal formed brown stool. Previous abdominal surgery 6 years ago. Reports cardiac workup with previous negative stress test about a year ago. Denies previous history of OR. Positive family history of OR, twin brother had OR at age 69. No fevers or chills. (When discussed further with pt, the "chest" pain was more in abdominal and lower back areas). Pt says he walks "all the time"; he likes to be physically active, and denies chest pain or dyspnea with exertion. Never smoked; no alcohol. - History Source History Provided By: Patient, Medical Record Limitations to Obtaining History: No Limitations - Past Medical History Cardio/Vascular: Yes: HTN Pulmonary: Yes: Asthma (as child only) Gastrointestinal: Yes: Other (benign tumor/?large polyp in sigmoid colon) Renal/: Yes: Renal Calculi - Past Surgical History Past Surgical History: Yes: Colectomy (laparoscopic partial left/sigmoidectomy w /colorectal anastomosis [address] Logan at [facility]), Colonoscopy - Alcohol/Substance Use Hx Alcohol Use: Yes (rarely) History of Substance Use: reports: None - Smoking History Smoking history: Never smoked Have you smoked in the past 12 months: No - Social History ADL: Independent Home Medications - Allergies Allergies/Adverse Reactions: Allergies Allergy/AdvReac Type Severity Reaction Status Date / Time No Known Allergies Allergy Verified 08/14/18 13:29 - Home Medications Home Medications: Ambulatory Orders Amlodipine Besylate 5 mg PO DAILY 08/15/18 Losartan Potassium 100 mg PO DAILY 08/15/18 Family Disease History - Family Disease History Family History: Denies Family Disease History: Heart Disease: Brother ([place]; of OR in his ?50s), [place] : Brother Review of Systems - Review of Systems Constitutional: reports: Weakness Eyes: reports: No Symptoms HENT: reports: No Symptoms Neck: reports: No Symptoms Cardiovascular: reports: No Symptoms Respiratory: reports: No Symptoms Gastrointestinal: reports: Abdominal Pain - Risk Factors Known Risk Factors: Yes: Age, Gender, Hypertension Vital Signs: Vital Signs Temperature 98.7 F 08/15/18 07:21 Pulse Rate 63 08/15/18 07:21 Respiratory Rate 20 08/15/18 07:21 Blood Pressure 130/68 08/15/18 07:21 O2 Sat by Pulse Oximetry (%) 96 08/15/18 07:21 Constitutional: Yes: Mild Distress Eyes: Yes: WNL HENT: Yes: WNL Neck: Yes: WNL Respiratory: Yes: WNL Gastrointestinal: Yes: Soft, Tenderness Renal/: No: Anuria Cardiovascular: Yes: Regular Rate and Rhythm JVD: No Carotid Bruit: No PMI: Non-Displaced Heart Sounds: Yes: S1, S2, S4 Murmur: Yes: Systolic Murmur, Grade 1 Musculoskeletal: Yes: WNL Extremities: Yes: WNL Edema: No Peripheral Pulses WNL: Yes Integumentary: Yes: WNL Neurological: Yes: WNL - Other Data Labs, Other Data: CBC, BMP 08/15/18 07:18 08/15/18 07:18 INR, PTT INR 1.03 (0.83-1.09) 08/14/18 14:17 Troponin, BNP 08/14/18 08/14/18 08/15/18 14:17 23:37 07:18 Troponin I < 0.02 < 0.02 < 0.02 Troponin, BNP 08/14/18 08/14/18 08/15/18 14:17 23:37 07:18 Troponin I < 0.02 < 0.02 < 0.02 Imaging - Results EKG: Image Reviewed (Normal study) Problem List - Problems (1) Calculus of gallbladder without cholecystitis without obstruction Assessment/Plan: F/u with surgeon, statement processor. Froma a cardiac standpoint, there are no absolute contraindications for Mr. Mitchell to undergo cholecystectomy. Code(s): K80.20 - CALCULUS OF GALLBLADDER W/O CHOLECYSTITIS W/O OBSTRUCTION (2) Chest pain Assessment/Plan: atypical; primarily abdominal/lower back. TNI <0.02; f/u serially. Hx negative stress MIBI about one year ago. F?u EKG. F/u ECHO for LVEF, wall motion, valves. Code(s): R07.9 - CHEST PAIN, UNSPECIFIED Qualifiers: Chest pain type: unspecified Qualified Code(s): R07.9 - Chest pain, unspecified (3) Hypertension Code(s): I10 - ESSENTIAL (PRIMARY) HYPERTENSION Qualifiers: Hypertension type: essential hypertension Qualified Code(s): I10 - Essential (primary) hypertension (4) Nausea and vomiting Code(s): R11.2 - NAUSEA WITH VOMITING, UNSPECIFIED Qualifiers: Vomiting type: unspecified Vomiting Intractability: non-intractable Qualified Code(s): R11.2 - Nausea with vomiting, unspecified (5) Periumbilical pain Code(s): R10.33 - PERIUMBILICAL PAIN (6) Kidney stone Code(s): N20.0 - CALCULUS OF KIDNEY (7) Elevated transaminase level Code(s): R74.0 - NONSPEC ELEV OF LEVELS OF TRANSAMNS & LACTIC ACID DEHYDRGNSE
[2018-08-15 09:37] LABS: CHOLESTEROL 163 mg/dL (50-200); HDL CHOLESTEROL 60 mg/dL (40-60); TRIGLYCERIDES 75 mg/dL (0-150)
--- NOTE | 2018-08-15 12:24 | PN ---
Progress Note, Physician History of Present Illness: 72yo M with history of colon cancer, HTN, kidney stone presenting with chest pain that started around 11am. Pain is constant and gradually worsening, rated 4 -5/10 at first and now 8-9/10. Patient reports 3 episodes of NBNB vomiting. He has never had pain like this before. The pain does not radiate, and worsens upon palpation and taking a deep breath. Nothing makes the pain better or worse. No history of ulcers, H. pylori, or recent NSAID use. Last bowel movement was today and was a normal formed brown stool. Previous abdominal surgery 6 years ago. Reports cardiac workup with previous negative stress test about a year ago. Denies previous history of MS. Positive family history of MS, twin brother had MS at age 69. No fevers or chills. (When discussed further with pt, the "chest" pain was more in abdominal and lower back areas). - Current Medication List Current Medications: Active Medications Sodium Chloride (Normal Saline -) 1,000 mls @ 75 mls/hr [facility] Last Admin: 08/14/18 19:58 Dose: 75 mls/hr Morphine Sulfate (Morphine Sulfate) 1 mg IVPUSH Q3H PRN PRN Reason: PAIN LEVEL 6-10 - Objective Vital Signs: Vital Signs Temperature 98.7 F 08/15/18 07:21 Pulse Rate 63 08/15/18 07:21 Respiratory Rate 20 08/15/18 07:21 Blood Pressure 130/68 08/15/18 07:21 O2 Sat by Pulse Oximetry (%) 96 08/15/18 07:21 Eyes: Yes: WNL, Conjunctiva Clear, EOM Intact HENT: Yes: WNL, Atraumatic, Normocephalic Neck: Yes: WNL, Supple, Trachea Midline Cardiovascular: Yes: WNL, Regular Rate and Rhythm Respiratory: Yes: WNL, Regular, CTA Bilaterally Gastrointestinal: Yes: WNL, Normal Bowel Sounds Genitourinary: Yes: WNL Musculoskeletal: Yes: WNL Extremities: Yes: WNL Edema: No Integumentary: Yes: WNL Neurological: Yes: WNL, Alert, Oriented ...Motor Strength: WNL Psychiatric: Yes: WNL Labs: CBC, BMP 08/15/18 07:18 08/15/18 07:18 INR, PTT INR 1.03 (0.83-1.09) 08/14/18 14:17 Assessment/Plan - Problems (1) Calculus of gallbladder without cholecystitis without obstruction Assessment/Plan: F/u with surgeon, cable layer. Code(s): K80.20 - CALCULUS OF GALLBLADDER W/O CHOLECYSTITIS W/O OBSTRUCTION (2) Chest pain Assessment/Plan: atypical; primarily abdominal/lower back. TNI <0.02; f/u serially. Hx negative stress MIBI about one year ago. F?u EKG. F/u ECHO for LVEF, wall motion, valves. Code(s): R07.9 - CHEST PAIN, UNSPECIFIED Qualifiers: Chest pain type: unspecified Qualified Code(s): R07.9 - Chest pain, unspecified (3) Hypertension Code(s): I10 - ESSENTIAL (PRIMARY) HYPERTENSION Qualifiers: Hypertension type: essential hypertension Qualified Code(s): I10 - Essential (primary) hypertension (4) Nausea and vomiting Code(s): R11.2 - NAUSEA WITH VOMITING, UNSPECIFIED Qualifiers: Vomiting type: unspecified Vomiting Intractability: non-intractable Qualified Code(s): R11.2 - Nausea with vomiting, unspecified (5) Periumbilical pain Code(s): R10.33 - PERIUMBILICAL PAIN (6) Kidney stone Code(s): N20.0 - CALCULUS OF KIDNEY (7) Elevated transaminase level Code(s): R74.0 - NONSPEC ELEV OF LEVELS OF TRANSAMNS & LACTIC ACID DEHYDRGNSE
--- NOTE | 2018-08-15 12:41 | CON.GI ---
Consult Consult Specialty:: GI Referred by:: Hospitalist Service Reason for Consultation:: Abdominal pain and abnormal liver chemistries - History of Present Illness Chief Complaint: Upper abdominal pain radiating to the back History of Present Illness: 72M admitted through [facility] for evaluation of abdominal pain. His explains that he was in [facility] up until 11:45am yesterday. They were ehading to scientologist when he became diaphoretic and began experiencing upper abdominal pain that raidated to both left and right upper abdomen and to the back. The pain persisted and was associated with non bloody vomiting x 3 episodes. He had eaten breakfast @ 8AM that morning. is drove him to the ER. Initially CBC was normal with mildly elevated ALP. ABD US revealed gallstones without evidence of acute cholecystitis. He was given morphine x 4 in the ED and pain slowly resolved. He denies abdominal pain currently and ate ? eggs this monring. He denies similar episodes in the past. He denies recent dysphagia, odynophagia, early satiety or unintentional weight loss. he believes that his last colonoscopy 3-4 years ago performed by Dr. Foreman and that the studies were "OK". - History Source History Provided By: Patient, Family Member ( present at bedside) Limitations to Obtaining History: No Limitations - Past Medical History Cardio/Vascular: Yes: HTN Pulmonary: Yes: Asthma (as child only) Gastrointestinal: Yes: Other (benign tumor/?large polyp in sigmoid colon s/p resection ( describes it being a cancer, resected @ [facility])) Renal/: Yes: Renal Calculi - Past Surgical History Past Surgical History: Yes: Colectomy (laparoscopic partial left/sigmoidectomy w /colorectal anastomosis [address] Logan at [facility]), Colonoscopy (EGD/ Colon, 3-[address] Foreman that were "OK") - Alcohol/Substance Use Hx Alcohol Use: No (rarely) History of Substance Use: reports: None - Smoking History Smoking history: Never smoked Have you smoked in the past 12 months: No - Social History Usual Living Arrangement: With Spouse ADL: Independent Place of : Other ([place]) Came to [place]year[place] 1979 History of Recent Travel: No Home Medications - Allergies Allergies/Adverse Reactions: Allergies Allergy/AdvReac Type Severity Reaction Status Date / Time No Known Allergies Allergy Verified 08/14/18 13:29 - Home Medications Home Medications: Ambulatory Orders Ibuprofen 600 mg PO TID PRN #21 tablet 01/06/17 Tamsulosin HCl [Flomax] 0.4 mg PO DAILY #14 cap.er.24h 01/06/17 Family Disease History - Family Disease History Family Disease History: Other: Father (: 80's: uncelar cause), Mother ( : 90: intraabdominal cancer), Brother (1, : possible pancreatic cancer) Other Family History: No children Review of Systems - Review of Systems Constitutional: denies: Chills Cardiovascular: denies: Chest Pain Gastrointestinal: reports: Abdominal Pain (upper abdomen radiating to left and right abdomen and back), Indigestion, Nausea, Vomiting. denies: Constipation, Diarrhea, Dysphagia, Melena, Rectal Bleeding Physical Exam-GI Vital Signs: Vital Signs Temperature 98.7 F 08/15/18 07:21 Pulse Rate 63 08/15/18 07:21 Respiratory Rate 20 08/15/18 07:21 Blood Pressure 130/68 08/15/18 07:21 O2 Sat by Pulse Oximetry (%) 96 08/15/18 07:21 Constitutional: Yes: Calm Eyes: No: Sclera Icterus Cardiovascular: Yes: Regular Rate and Rhythm. No: Murmur Respiratory: Yes: CTA Bilaterally Gastrointestinal Inspection: Yes: Scars (midline vertical pelvic scar) ...Auscultate: Yes: Normoactive Bowel Sounds ...Palpate: No: Hepatomegaly, Splenomegaly ...Percussion: No: Tympanitic Edema: No (No LE edema) Neurological: Yes: Alert Labs: CBC, BMP 08/15/18 07:18 08/15/18 07:18 INR, PTT INR 1.03 (0.83-1.09) 08/14/18 14:17 Hepatic Panel Total Bilirubin 0.8 mg/dL (0.2-1) 08/15/18 07:18 AST 130 U/L (15-37) H 08/15/18 07:18 ALT 190 U/L (13-61) H 08/15/18 07:18 Alkaline Phosphatase 125 U/L (45-117) H 08/15/18 07:18 Albumin 3.3 g/dl (3.4-5.0) L 08/15/18 07:18 Imaging - Results Ultrasound: Report Reviewed Problem List - Problems (1) Biliary colic Assessment/Plan: Suspected biliary colic Clinically improved: Advise: NPO IV hydration MRCP to evaluate pancreatic parenchyma as well as biliary tract Monitor LFT's recent LFTs prior to admission were normal Check hepatitis A/B/C serologies Surgery is on the case Code(s): K80.50 - CALCULUS OF BILE DUCT W/O CHOLANGITIS OR CHOLECYST W/O OBST
--- NOTE | 2018-08-15 14:24 | ECHO ---
Name: MYCHAL GUTIERREZ Exam:Adult Echocardiogram Study Date: 08/15/2018 08:30 AM Age: 72 yrs Reason For Study: R/O ACS Height: 62 in Weight: 158 lb BSA: 1.7 m2 MMode/2D Measurements & Calculations IVSd: 1.1 cm Ao root diam: 3.2 cm LVIDd: 5.4 cm LA dimension: 3.3 cm LVIDs: 3.9 cm LVPWd: 0.90 cm EDV(Teich): 144.1 ml LAV (MOD-bp): 43.1 ml ESV(Teich): 65.5 ml Doppler Measurements & Calculations MV E max too: 77.4 cm/sec Med Peak E' Too: 6.3 cm/sec MV A max too: 100.4 cm/sec Med E/e': 12.3 MV E/A: 0.77 Lat Peak E' Too: 9.1 cm/sec MV dec time: 0.13 sec Lat E/e': 8.5 PI Vmax: 97.7 cm/sec Procedure A complete two-dimensional transthoracic echocardiogram was performed (2D, M-mode, Doppler and color flow Doppler). Left Ventricle The left ventricle is normal in size. Left ventricular systolic function is normal. Ejection Fraction = 65- 70%. E/A reversal with TDI revealing impaired relaxation with normal filling pressure. No regional wa ll motion abnormalities noted. Right Ventricle The right ventricle is not well visualized. The right ventricular systolic function is grossly normal . Atria The left atrial size is normal. Right atrial size is normal. Mitral Valve There is mild mitral annular calcification. There is no mitral regurgitation noted. Tricuspid Valve The tricuspid valve is normal in structure and function. No tricuspid regurgitation. Aortic Valve The aortic valve is normal in structure and function. No aortic regurgitation is present. Pulmonic Valve The pulmonic valve is not well visualized. Great Vessels The aortic root is normal size. Pericardium/Pleura There is no pericardial effusion. Interpretation Summary The left ventricle is normal in size. Left ventricular systolic function is normal. No regional wall motion abnormalities noted. Ejection Fraction = 65-70%. E/A reversal with TDI revealing impaired relaxation with normal filling pressure The right ventricular systolic function is grossly normal. The left atrial size is normal. Right atrial size is normal. There is mild mitral annular calcification. No signifcant valvular regurgitation There is no pericardial effusion. Previous study is not available for comparison Reuben Briseno MD 08/15/2018 02:23 PM
--- NOTE | 2018-08-15 16:56 | PN ---
Physical Exam: SUBJECTIVE: Patient seen and examined this morning at bedside. Continues to experience some pain but says its improved. He says his weight gain and abdominal could possibly be due to increased stress in his life. has not had any vomiting since his initial onset of pain. OBJECTIVE: Vital Signs Period Temp Pulse Resp BP Sys/Davies Pulse Ox Last 24 Hr 98.7 F 63-66 20-20 130-155/68-87 96-97 GENERAL: A&Ox3, NAD HEAD: NCAT EYES: PERRL, EOMI THROAT: oropharynx clear without exudates, MMM NECK: No JVD LUNGS: Breath sounds equal, clear to auscultation bilaterally, no wheezes HEART: Regular rate and rhythm, S1, S2 without murmur ABDOMEN: Soft, NonTender to palpation (Given pain meds in ED), Negative sheth' s sign, not distended, + bowel sounds MUSCULOSKELETAL: No CVA tenderness. EXTREMITIES: 2+ pulses, No peripheral edema. NEUROLOGICAL: Cranial nerves II-XII intact. Normal speech. 5/5 Muscle strength to Handgrip, Elbow flexion/extension, Shoulder abduction, Hip flexion/extension , Dorsiflexion, plantarflexion. Gross sensation intact throughout. SKIN: Warm, dry, no rashes or lesions noted Laboratory Results - last 24 hr 08/14/18 08/14/18 08/15/18 18:37 23:37 07:18 WBC 9.0 RBC 4.39 Hgb 13.5 Hct 40.7 MCV 92.7 MCH 30.8 MCHC 33.2 RDW 13.3 Plt Count 175 MPV 8.5 Absolute Neuts (auto) 6.5 Neutrophils % 72.6 Lymphocytes % 17.8 Monocytes % 9.4 Eosinophils % 0.1 D Basophils % 0.1 Nucleated RBC % 0 Sodium Potassium Chloride Carbon Dioxide Anion Gap BUN Creatinine Creat Clearance w eGFR Random Glucose Calcium Phosphorus Magnesium Total Bilirubin AST ALT Alkaline Phosphatase Troponin I < 0.02 C-Reactive Protein < 0.3 Total Protein Albumin Triglycerides Cholesterol Total LDL Cholesterol HDL Cholesterol Lipase TSH Stool Occult Blood 08/15/18 08/15/18 08/15/18 07:18 07:18 09:00 WBC RBC Hgb Hct MCV MCH MCHC RDW Plt Count MPV Absolute Neuts (auto) Neutrophils % Lymphocytes % Monocytes % Eosinophils % Basophils % Nucleated RBC % Sodium 140 Potassium 3.9 Chloride 106 Carbon Dioxide 24 Anion Gap 9 BUN 20 H Creatinine 0.8 Creat Clearance w eGFR > 60 Random Glucose 93 Calcium 8.1 L Phosphorus 2.9 Magnesium 2.3 Total Bilirubin 0.8 AST 130 H ALT 190 H Alkaline Phosphatase 125 H Troponin I < 0.02 C-Reactive Protein Total Protein 6.4 Albumin 3.3 L Triglycerides 75 Cholesterol 163 Cancelled Total LDL Cholesterol 98 HDL Cholesterol 60 Lipase 85 TSH 1.39 Stool Occult Blood 08/15/18 08/15/18 09:00 10:40 WBC RBC Hgb Hct MCV MCH MCHC RDW Plt Count MPV Absolute Neuts (auto) Neutrophils % Lymphocytes % Monocytes % Eosinophils % Basophils % Nucleated RBC % Sodium Potassium Chloride Carbon Dioxide Anion Gap BUN Creatinine Creat Clearance w eGFR Random Glucose Calcium Phosphorus Magnesium Total Bilirubin AST ALT Alkaline Phosphatase Troponin I C-Reactive Protein Total Protein Albumin Triglycerides Cancelled Cholesterol Total LDL Cholesterol Cancelled HDL Cholesterol Lipase TSH Stool Occult Blood Negative Active Medications Amlodipine Besylate (Norvasc -) 5 mg PO DAILY [facility] Sodium Chloride (Normal Saline -) 1,000 mls @ 75 mls/hr IV ASDIR TONIE Last Admin: 08/14/18 19:58 Dose: 75 mls/hr Morphine Sulfate (Morphine Sulfate) 1 mg IVPUSH Q3H PRN PRN Reason: PAIN LEVEL 6-10 Non-Formulary Medication (Losartan Potassium [Losartan Potassium]) 100 mg PO DAILY [facility] IMAGING: -Abdominal US: Cholelithiasis, Fatty infiltration of the liver -CT A/P with Contrast: Questionable tiny hiatus hernia. Gallstones without CT evidence of acute cholecystitis. Questionable mild fatty infiltration of the liver. No obstructing ureteral stone is identified. Postop sutures around the distal sigmoid colon without gross wall thickening or obstruction. -CXR: No acute chest pathology. Tracheal deviation to the right from a prominent knob. Right midlung atelectasis or scarring by horizontal fissure. -ECHO: LV Systolic function is normal, EF 65-70%. No regional wall motion abnormalities. No significant valvular regurgitation. No Pericardial effusion. ASSESSMENT/PLAN: 72 y/o M with PMHx of colon cancer, HTN, kidney stone presented to [facility] ED with epigastric pain. 1. Epigastric pain -Possibly due to biliary colic -AST 130, ALT 190, Alk Phos 125, rising -Lipase 109-->85 -Abdominal US: Cholelithiasis -CT A/P with Contrast: Questionable tiny hiatus hernia. Gallstones without CT evidence of acute cholecystitis. -Negative Clements sign -GI (Dr. Tesfaye) consulted: MRCP, Monitor LFT's, hepatitis A/B/C serologies -Surgery (Dr. Hardy) consulted, Appreciate rec's -NPO -NS @ 75 mls/hr -MRCP ordered -Pain control with Morphine 2. R/O ACS -Trops < 0.02 X3 -Cardiology (Dr. Teixeira) consulted, appreciate rec's -ECHO: LV Systolic function is normal, EF 65-70%. No regional wall motion abnormalities. No significant valvular regurgitation. No Pericardial effusion. 3. HTN - Continue home dose Losartan, Norvasc 4. FEN -NS @ 75 mls/hr -Lytes wnl -NPO 5. PPx -Hold heparin; SCDs Dispo: Tele obs Visit type - Emergency Visit Emergency Visit: Yes ED Registration Date: 08/14/18 Care time: The patient presented to the Emergency Department on the above date and was hospitalized for further evaluation of their emergent condition. - New Patient This patient is new to me today: Yes Date on this admission: 08/15/18 - Critical Care Critical Care patient: No
--- NOTE | 2018-08-15 17:20 | PN ---
Teaching Attending Note Name of Resident: Dorys Dahl ATTENDING PHYSICIAN STATEMENT I saw and evaluated the patient. I reviewed the resident's note and discussed the case with the resident. I agree with the resident's findings and plan as documented. SUBJECTIVE: No fever or chills, no shortness of breath. OBJECTIVE: Vital Signs Temperature 98.7 F 08/15/18 07:21 Pulse Rate 63 08/15/18 07:21 Respiratory Rate 20 08/15/18 07:21 Blood Pressure 130/68 08/15/18 07:21 O2 Sat by Pulse Oximetry (%) 96 08/15/18 07:21 GENERAL: Awake, alert, and fully oriented, in no acute distress. HEAD: Normal with no signs of trauma. EYES: Pupils equal, round and reactive to light, extraocular movements intact, sclera anicteric, conjunctiva clear. EARS, NOSE, THROAT: Ears normal, oropharynx clear without exudates. Moist mucous membranes. NECK: Normal range of motion, supple without lymphadenopathy, JVD, or masses. LUNGS: Breath sounds equal, clear to auscultation bilaterally. No wheezes, and no crackles. No accessory muscle use. HEART: Regular rate and rhythm, normal S1 and S2 without murmur, rub or gallop. ABDOMEN: RUQ tenderness , not distended, normoactive bowel sounds, no guarding, no rebound, no masses. EXTREMITIES: 2+ pulses, warm, well-perfused. No cyanosis. No clubbing. No peripheral edema. NEUROLOGICAL: Cranial nerves II-XII intact. Normal speech. PSYCHIATRIC: Cooperative. Good eye contact. Appropriate mood and affect. SKIN: Warm, dry, normal turgor, no rashes or lesions noted, normal capillary refill. CBCD WBC 9.0 K/mm3 (4.0-10.0) 08/15/18 07:18 RBC 4.39 M/mm3 (4.00-5.60) 08/15/18 07:18 Hgb 13.5 GM/dL (11.7-16.9) 08/15/18 07:18 Hct 40.7 % (35.4-49) 08/15/18 07:18 MCV 92.7 fl (80-96) 08/15/18 07:18 MCHC 33.2 g/dl (32.0-35.9) 08/15/18 07:18 RDW 13.3 % (11.9-15.9) 08/15/18 07:18 Plt Count 175 K/MM3 (134-434) 08/15/18 07:18 MPV 8.5 fl (7.5-11.1) 08/15/18 07:18 CMP Sodium 140 mmol/L (136-145) 08/15/18 07:18 Potassium 3.9 mmol/L (3.5-5.1) 08/15/18 07:18 Chloride 106 mmol/L (98-107) 08/15/18 07:18 Carbon Dioxide 24 mmol/L (21-32) 08/15/18 07:18 Anion Gap 9 MMOL/L (8-16) 08/15/18 07:18 BUN 20 mg/dL (7-18) H 08/15/18 07:18 Creatinine 0.8 mg/dL (0.55-1.3) 08/15/18 07:18 Creat Clearance w eGFR > 60 (>60) 08/15/18 07:18 Random Glucose 93 mg/dL (74-106) 08/15/18 07:18 Calcium 8.1 mg/dL (8.5-10.1) L 08/15/18 07:18 Total Bilirubin 0.8 mg/dL (0.2-1) 08/15/18 07:18 AST 130 U/L (15-37) H 08/15/18 07:18 ALT 190 U/L (13-61) H 08/15/18 07:18 Alkaline Phosphatase 125 U/L (45-117) H 08/15/18 07:18 Total Protein 6.4 g/dl (6.4-8.2) 08/15/18 07:18 Albumin 3.3 g/dl (3.4-5.0) L 08/15/18 07:18 CARDIAC ENZYMES Creatine Kinase 82 IU/L (26-308) 08/14/18 14:17 Troponin I < 0.02 ng/ml (0.00-0.05) 08/15/18 07:18 Current Medications Generic Name Dose Route Start Last Admin Trade Name Freq PRN Reason Stop Dose Admin Sodium Chloride 1,000 mls @ 75 mls/hr 08/14/18 18:45 08/14/18 19:58 Normal Saline - IV 75 mls/hr ASDIR TONIE Administration Morphine Sulfate 1 mg 08/14/18 19:24 Morphine Sulfate IVPUSH Q3H PRN PAIN LEVEL 6-10 Home Medications Medication Instructions Recorded Amlodipine Besylate 5 mg PO DAILY 08/15/18 Losartan Potassium 100 mg PO DAILY 08/15/18 ELevated LFTs ASSESSMENT AND PLAN: Patient is a 72yo M with history of colon cancer, HTN, kidney stone presenting with chest pain/RUQ pain. # acute biliary colic due to cholethiasis , IVF, surgical consult Dr. Hardy. Follow MRCP result. GI consult appreciated. # Acute transamintis continue to monitor, and check MRCP result. # Hx of Colon Ca # Hx of HTN # Hx of Kidney stone. DVT Px:heparin sq
--- NOTE | 2018-08-15 20:57 | PN ---
Progress Note, Physician History of Present Illness: Pt with cholelithiasis and epigastric pain, not clearly cholecystitis. Seen in ER holding again, awaiting MRCP after GI consultation earlier today. Pt without pain, no nausea or fever. Hungry, has sipped a bit of water. LFTs with some elevation in AST/ALT today, wbc normal. - Current Medication List Current Medications: Active Medications Amlodipine Besylate (Norvasc -) 5 mg PO DAILY [facility] Heparin Sodium (Porcine) (Heparin -) 5,000 unit SQ TID [facility] Sodium Chloride (Normal Saline -) 1,000 mls @ 75 mls/hr IV ASDIR TONIE Last Admin: 08/14/18 19:58 Dose: 75 mls/hr Losartan Potassium (Cozaar -) 100 mg PO DAILY [facility] Morphine Sulfate (Morphine Sulfate) 1 mg IVPUSH Q3H PRN PRN Reason: PAIN LEVEL 6-10 - Objective Vital Signs: Vital Signs Temperature 98.7 F 08/15/18 07:21 Pulse Rate 63 08/15/18 07:21 Respiratory Rate 20 08/15/18 07:21 Blood Pressure 130/68 08/15/18 07:21 O2 Sat by Pulse Oximetry (%) 96 08/15/18 07:21 Constitutional: Yes: Well Nourished, No Distress, Calm Eyes: Yes: Conjunctiva Clear, EOM Intact. No: Sclera Icterus HENT: Yes: Atraumatic, Normocephalic Gastrointestinal: Yes: Soft. No: Distention, Tenderness, Tenderness, Epigastrium Genitourinary: No: CVA Tenderness - Left, CVA Tenderness - Right Extremities: No: Cool, Cyanosis Integumentary: No: Jaundice, Rash Neurological: Yes: Alert, Oriented Labs: CBC, BMP 08/15/18 07:18 08/15/18 07:18 INR, PTT INR 1.03 (0.83-1.09) 08/14/18 14:17 CMP Sodium 140 mmol/L (136-145) 08/15/18 07:18 Potassium 3.9 mmol/L (3.5-5.1) 08/15/18 07:18 Chloride 106 mmol/L (98-107) 08/15/18 07:18 Carbon Dioxide 24 mmol/L (21-32) 08/15/18 07:18 Anion Gap 9 MMOL/L (8-16) 08/15/18 07:18 BUN 20 mg/dL (7-18) H 08/15/18 07:18 Creatinine 0.8 mg/dL (0.55-1.3) 08/15/18 07:18 Creat Clearance w eGFR > 60 (>60) 08/15/18 07:18 Random Glucose 93 mg/dL (74-106) 08/15/18 07:18 Calcium 8.1 mg/dL (8.5-10.1) L 08/15/18 07:18 Phosphorus 2.9 mg/dL (2.5-4.9) 08/15/18 07:18 Magnesium 2.3 mg/dL (1.8-2.4) 08/15/18 07:18 Total Bilirubin 0.8 mg/dL (0.2-1) 08/15/18 07:18 AST 130 U/L (15-37) H 08/15/18 07:18 ALT 190 U/L (13-61) H 08/15/18 07:18 Alkaline Phosphatase 125 U/L (45-117) H 08/15/18 07:18 Creatine Kinase 82 IU/L (26-308) 08/14/18 14:17 Troponin I < 0.02 ng/ml (0.00-0.05) 08/15/18 07:18 C-Reactive Protein < 0.3 MG/DL (0.00-0.3) 08/14/18 18:37 Total Protein 6.4 g/dl (6.4-8.2) 08/15/18 07:18 Albumin 3.3 g/dl (3.4-5.0) L 08/15/18 07:18 Triglycerides Cancelled 08/15/18 09:00 Cholesterol Cancelled 08/15/18 09:00 Total LDL Cholesterol Cancelled 08/15/18 09:00 HDL Cholesterol 60 mg/dL (40-60) 08/15/18 07:18 Lipase 85 U/L (73-393) 08/15/18 07:18 TSH 1.39 uIU/ml (0.358-3.74) 08/15/18 07:18 - ....Imaging MRI: Pending Problem List - Problems (1) Calculus of gallbladder without cholecystitis without obstruction Assessment/Plan: gallstones, but no clear cholecystitis pain/tenderness completely resolved trend labs including lipase MRCP pending will follow up in am keep NPO with IVF except meds Code(s): K80.20 - CALCULUS OF GALLBLADDER W/O CHOLECYSTITIS W/O OBSTRUCTION (2) Periumbilical pain Assessment/Plan: resolved Code(s): R10.33 - PERIUMBILICAL PAIN (3) Nausea and vomiting Assessment/Plan: resolved Code(s): R11.2 - NAUSEA WITH VOMITING, UNSPECIFIED Qualifiers: Vomiting type: unspecified Vomiting Intractability: non-intractable Qualified Code(s): R11.2 - Nausea with vomiting, unspecified (4) Hypertension Code(s): I10 - ESSENTIAL (PRIMARY) HYPERTENSION Qualifiers: Hypertension type: essential hypertension Qualified Code(s): I10 - Essential (primary) hypertension
[2018-08-15] MEDS: SODIUM CHLORIDE 1,000 ML IV SCH (21:38)
[2018-08-15] MEDS: HEPARIN NA (PORCINE) 5,000 UNITS/ML 1ML VIAL SQ SCH (21:39)
[2018-08-16 00:43] LABS: URINE APPEARANCE CLEAR; URINE BILIRUBIN NEGATIVE (<2.0 mg/dL); URINE COLOR LTYELLOW; URINE GLUCOSE (UA) NEGATIVE (NEGATIVE); URINE KETONE NEGATIVE (NEGATIVE); URINE LEUK ESTERASE NEGATIVE (NEGATIVE); URINE NITRITE NEGATIVE (NEGATIVE); URINE PROTEIN NEGATIVE (NEGATIVE); URINE UROBILINOGEN NEGATIVE mg/dL (0.2-1.0)
[2018-08-16 06:42] LABS: BASO % 0.1 % (0-2.0); EOS % 0.1 % (0-4.5); HEMATOCRIT 39.6 % (35.4-49); HEMOGLOBIN 13.2 GM/dL (11.7-16.9); LYMPH % 12.5 % (8-40); MCH 30.9 pg (25.7-33.7); MCHC 33.3 g/dl (32.0-35.9); MEAN CELL VOLUME 92.8 fl (80-96); MEAN PLT VOLUME 8.3 fl (7.5-11.1); MONO % 10.2 % (3.8-10.2); NEUT % 77.1 % (42.8-82.8); PLATELET COUNT 158 K/MM3 (134-434); RBC 4.27 M/mm3 (4.00-5.60); RDW 13.3 % (11.9-15.9); WHITE BLOOD COUNT 9.5 K/mm3 (4.0-10.0)
[2018-08-16] MEDS: HEPARIN NA (PORCINE) 5,000 UNITS/ML 1ML VIAL SQ SCH ×3 (06:43→22:10)
[2018-08-16 07:28] LABS: ALBUMIN 3.1 g/dl (3.4-5.0); ALK PHOS 107 U/L (45-117); ANION GAP 8 MMOL/L (8-16); BILIRUBIN,TOTAL 0.9 mg/dL (0.2-1); BLOOD UREA NITROGEN 15 mg/dL (7-18); CALCIUM 8.3 mg/dL (8.5-10.1); CHLORIDE 110 mmol/L (98-107); CO2 22 mmol/L (21-32); CREATININE 0.6 mg/dL (0.55-1.3); GLUCOSE,RANDOM 95 mg/dL (74-106); MAGNESIUM 2.2 mg/dL (1.8-2.4); POTASSIUM 3.9 mmol/L (3.5-5.1); SGOT/AST 36 U/L (15-37); SGPT/ALT 106 U/L (13-61); SODIUM 140 mmol/L (136-145); TOT PROT 5.9 g/dl (6.4-8.2)
--- NOTE | 2018-08-16 08:15 | PN ---
Teaching Attending Note Name of Resident: Dorys Dahl ATTENDING PHYSICIAN STATEMENT I saw and evaluated the patient. I reviewed the resident's note and discussed the case with the resident. I agree with the resident's findings and plan as documented. SUBJECTIVE: OBJECTIVE: Vital Signs Temperature 98.9 F 08/16/18 05:08 Pulse Rate 73 08/16/18 05:08 Respiratory Rate 18 08/16/18 05:08 Blood Pressure 138/67 08/16/18 05:08 O2 Sat by Pulse Oximetry (%) 99 08/16/18 02:00 GENERAL: Awake, alert, and fully oriented, in no acute distress. HEAD: Normal with no signs of trauma. EYES: Pupils equal, round and reactive to light, extraocular movements intact, sclera anicteric, conjunctiva clear. EARS, NOSE, THROAT: Ears normal, oropharynx clear without exudates. Moist mucous membranes. NECK: Normal range of motion, supple without lymphadenopathy, JVD, or masses. LUNGS: Breath sounds equal, clear to auscultation bilaterally. No wheezes, and no crackles. No accessory muscle use. HEART: Regular rate and rhythm, normal S1 and S2 without murmur, rub or gallop. ABDOMEN: Soft, nontender, not distended, normoactive bowel sounds, no guarding, no rebound, no masses. No hepatomegaly or splenomegaly. MUSCULOSKELETAL: Normal range of motion at all joints. No bony deformities or tenderness. No CVA tenderness. EXTREMITIES: 2+ pulses, warm, well-perfused. No cyanosis. No clubbing. No peripheral edema. NEUROLOGICAL: Cranial nerves II-XII intact. Normal speech. Normal gait. PSYCHIATRIC: Cooperative. Good eye contact. Appropriate mood and affect. SKIN: Warm, dry, normal turgor, no rashes or lesions noted, normal capillary refill. CBCD WBC 9.5 K/mm3 (4.0-10.0) 08/16/18 05:30 RBC 4.27 M/mm3 (4.00-5.60) 08/16/18 05:30 Hgb 13.2 GM/dL (11.7-16.9) 08/16/18 05:30 Hct 39.6 % (35.4-49) 08/16/18 05:30 MCV 92.8 fl (80-96) 08/16/18 05:30 MCHC 33.3 g/dl (32.0-35.9) 08/16/18 05:30 RDW 13.3 % (11.9-15.9) 08/16/18 05:30 Plt Count 158 K/MM3 (134-434) 08/16/18 05:30 MPV 8.3 fl (7.5-11.1) 08/16/18 05:30 CMP Sodium 140 mmol/L (136-145) 08/16/18 05:30 Potassium 3.9 mmol/L (3.5-5.1) 08/16/18 05:30 Chloride 110 mmol/L (98-107) H 08/16/18 05:30 Carbon Dioxide 22 mmol/L (21-32) 08/16/18 05:30 Anion Gap 8 MMOL/L (8-16) 08/16/18 05:30 BUN 15 mg/dL (7-18) 08/16/18 05:30 Creatinine 0.6 mg/dL (0.55-1.3) 08/16/18 05:30 Creat Clearance w eGFR > 60 (>60) 08/16/18 05:30 Random Glucose 95 mg/dL (74-106) 08/16/18 05:30 Calcium 8.3 mg/dL (8.5-10.1) L 08/16/18 05:30 Total Bilirubin 0.9 mg/dL (0.2-1) 08/16/18 05:30 AST 36 U/L (15-37) 08/16/18 05:30 ALT 106 U/L (13-61) H 08/16/18 05:30 Alkaline Phosphatase 107 U/L (45-117) 08/16/18 05:30 Total Protein 5.9 g/dl (6.4-8.2) L 08/16/18 05:30 Albumin 3.1 g/dl (3.4-5.0) L 08/16/18 05:30 CARDIAC ENZYMES Creatine Kinase 82 IU/L (26-308) 08/14/18 14:17 Troponin I < 0.02 ng/ml (0.00-0.05) 08/15/18 07:18 Current Medications Generic Name Dose Route Start Last Admin Trade Name Freq PRN Reason Stop Dose Admin Amlodipine Besylate 5 mg 08/16/18 10:00 Norvasc - PO DAILY [facility] Heparin Sodium (Porcine) 5,000 unit 08/15/18 22:00 08/16/18 06:43 Heparin - SQ Not Given TID [facility] Sodium Chloride 1,000 mls @ 75 mls/hr 08/14/18 18:45 08/15/18 21:38 Normal Saline - IV 75 mls/hr ASDIR TONIE Administration Influenza Virus Vaccine Quadrival 60 mcg 08/16/18 10:00 Flulaval Quad [id number] IM 08/16/18 10:01 .ONCE ONE Losartan Potassium 100 mg 08/16/18 10:00 Cozaar - PO DAILY [facility] Morphine Sulfate 1 mg 08/14/18 19:24 Morphine Sulfate IVPUSH Q3H PRN PAIN LEVEL 6-10 Home Medications Medication Instructions Recorded Amlodipine Besylate 5 mg PO DAILY 08/15/18 Losartan Potassium 100 mg PO DAILY 08/15/18 ELevated LFTs ASSESSMENT AND PLAN: Patient is a 72yo M with history of colon cancer, HTN, kidney stone presented to ED. with RUQ pain. # acute biliary colic with elevated LTs and cholethiasis going to sx today at 3pm. On IVF, surgeon Dr. Hardy. GI on the case . # Acute transamintis continue to monitor # Hx of Colon Ca # Hx of HTN # Hx of Kidney stone. DVT Px:heparin sq
[2018-08-16] MEDS ORDERED: FLU VACCINE QUAD 60 MCG/0.5 ML (MDV 18-19) IM ONE (10:00)
[2018-08-16] MEDS ORDERED: amLODIPine BESYLATE 5 MG TABLET (FP) PO SCH (10:00)
[2018-08-16] MEDS ORDERED: LOSARTAN POTASSIUM 50 MG TABLET (FP) PO SCH (10:00)
--- NOTE | 2018-08-16 10:45 | EKG ---
Test Reason : Blood Pressure : / mmHG Vent. Rate : 077 BPM Atrial Rate : 077 BPM P-R Int : 186 ms QRS Dur : 098 ms QT Int : 384 ms P-R-T Axes : 048 -16 016 degrees QTc Int : 434 ms NORMAL SINUS RHYTHM NORMAL ECG WHEN COMPARED WITH ECG OF 14-AUG-2018 20:06, NO SIGNIFICANT CHANGE WAS FOUND Confirmed by Robert Fulton MD ([id number]) on 08/16/2018 10:45:19 AM Referred By: Confirmed By:Robert Fulton MD
--- NOTE | 2018-08-16 10:47 | EKG ---
Test Reason : Blood Pressure : / mmHG Vent. Rate : 063 BPM Atrial Rate : 063 BPM P-R Int : 178 ms QRS Dur : 102 ms QT Int : 434 ms P-R-T Axes : 037 -18 025 degrees QTc Int : 444 ms NORMAL SINUS RHYTHM NORMAL ECG NO PREVIOUS ECGS AVAILABLE Confirmed by Robert Fulton MD ([id number]) on 08/16/2018 10:46:54 AM Referred By: Confirmed By:Robert Fulton MD
[2018-08-16 12:32] VITALS: BMI 30.5
--- NOTE | 2018-08-16 13:28 | PN ---
Physical Exam: SUBJECTIVE: Patient seen and examined this morning at bedside. Did not experience pain overnight. OBJECTIVE: Vital Signs Period Temp Pulse Resp BP Sys/Davies Pulse Ox Last 24 Hr 98 F-98.9 F 61-89 18-19 130-138/67-78 99-99 GENERAL: A&Ox3, NAD HEAD: NCAT EYES: PERRL, EOMI THROAT: oropharynx clear without exudates, MMM NECK: No JVD LUNGS: Breath sounds equal, clear to auscultation bilaterally, no wheezes HEART: Regular rate and rhythm, S1, S2 without murmur ABDOMEN: Soft, NonTender to palpation, not distended, + bowel sounds EXTREMITIES: 2+ pulses, No peripheral edema. NEUROLOGICAL: Cranial nerves II-XII intact. Normal speech. 5/5 Muscle strength to Handgrip, Elbow flexion/extension, Shoulder abduction, Hip flexion/extension , Dorsiflexion, plantarflexion. Gross sensation intact throughout. SKIN: Warm, dry, no rashes or lesions noted Laboratory Results - last 24 hr 08/16/18 08/16/18 08/16/18 00:02 05:30 05:30 WBC 9.5 RBC 4.27 Hgb 13.2 Hct 39.6 MCV 92.8 MCH 30.9 MCHC 33.3 RDW 13.3 Plt Count 158 MPV 8.3 Absolute Neuts (auto) 7.3 Neutrophils % 77.1 Lymphocytes % 12.5 D Monocytes % 10.2 Eosinophils % 0.1 Basophils % 0.1 Nucleated RBC % 0 Sodium 140 Potassium 3.9 Chloride 110 H Carbon Dioxide 22 Anion Gap 8 BUN 15 Creatinine 0.6 Creat Clearance w eGFR > 60 Random Glucose 95 Calcium 8.3 L Phosphorus 2.0 L Magnesium 2.2 Total Bilirubin 0.9 AST 36 ALT 106 H Alkaline Phosphatase 107 Total Protein 5.9 L Albumin 3.1 L Urine Color Ltyellow Urine Appearance Clear Urine pH 7.0 Ur Specific [place] 1.012 Urine Protein Negative Urine Glucose (UA) Negative Urine Ketones Negative Urine Blood Negative Urine Nitrite Negative Urine Bilirubin Negative Urine Urobilinogen Negative Ur Leukocyte Esterase Negative Active Medications Amlodipine Besylate (Norvasc -) 5 mg PO DAILY [facility] Last Admin: 08/16/18 10:16 Dose: 5 mg Heparin Sodium (Porcine) (Heparin -) 5,000 unit SQ TID [facility] Last Admin: 08/16/18 06:43 Dose: Not Given Sodium Chloride (Normal Saline -) 1,000 mls @ 75 mls/hr IV ASDIR [facility] Last Admin: 08/15/18 21:38 Dose: 75 mls/hr Losartan Potassium (Cozaar -) 100 mg PO DAILY [facility] Last Admin: 08/16/18 10:15 Dose: 100 mg Morphine Sulfate (Morphine Sulfate) 1 mg IVPUSH Q3H PRN PRN Reason: PAIN LEVEL 6-10 IMAGING: -Abdominal US: Cholelithiasis, Fatty infiltration of the liver -CT A/P with Contrast: Questionable tiny hiatus hernia. Gallstones without CT evidence of acute cholecystitis. Questionable mild fatty infiltration of the liver. No obstructing ureteral stone is identified. Postop sutures around the distal sigmoid colon without gross wall thickening or obstruction. -CXR: No acute chest pathology. Tracheal deviation to the right from a prominent knob. Right midlung atelectasis or scarring by horizontal fissure. -ECHO: LV Systolic function is normal, EF 65-70%. No regional wall motion abnormalities. No significant valvular regurgitation. No Pericardial effusion. -MRCP: Cholelithiasis with thickened gallbladder wall compatible with cholecystitis. No evidence of dilatation of the intrahepatic biliary radicles, common hepatic and common bile ducts. No evidence of choledocholithiasis. No evidence of pancreatic duct dilatation or acute pancreatitis. ASSESSMENT/PLAN: 72 y/o M with PMHx of colon cancer, HTN, kidney stone presented to [facility] ED with epigastric pain. 1. Epigastric pain -Possibly due to biliary colic -AST and Alk Phos have normalized, ALT Trending down -Lipase 109-->85 -Abdominal US: Cholelithiasis -CT A/P with Contrast: Questionable tiny hiatus hernia. Gallstones without CT evidence of acute cholecystitis. -MRCP: Cholelithiasis with thickened gallbladder wall compatible with cholecystitis. -Negative [place] sign -GI (Dr. Tesfaye) consulted, Appreciate rec's -Surgery (Dr. Hardy) consulted, Surgery today, POD#0, will follow post-op rec's -NPO -NS @ 75 mls/hr -MRCP pending read -Pain control with Morphine -Hepatitis serologies pending 2. R/O ACS -Trops < 0.02 X3 -Cardiology (Dr. Teixeira) consulted, appreciate rec's -ECHO: LV Systolic function is normal, EF 65-70%. No regional wall motion abnormalities. No significant valvular regurgitation. No Pericardial effusion. 3. HTN - Continue home dose Losartan, Norvasc 4. FEN -NS @ 75 mls/hr -Lytes wnl -NPO 5. PPx -Hold heparin; SCDs Dispo: Paul Erickson today Visit type - Emergency Visit Emergency Visit: Yes ED Registration Date: 08/16/18 Care time: The patient presented to the Emergency Department on the above date and was hospitalized for further evaluation of their emergent condition. - New Patient This patient is new to me today: Yes Date on this admission: 08/16/18 - Critical Care Critical Care patient: No
--- NOTE | 2018-08-16 13:35 | PN ---
Progress Note, Physician History of Present Illness: Pt with cholelithiasis and epigastric pain, likely biliary colic not cholecystitis. Seen in in bed on floor with at bedside. Pt with mild pain, no nausea or fever. NPO with IVF. LFTs with some elevation in AST/ALT yesterday , back down today. Discussed lap possible open desiree with pt and - he would like to have gallbladder out, even though there is no guarantee it was causing his symptoms. - Current Medication List Current Medications: Active Medications Amlodipine Besylate (Norvasc -) 5 mg PO DAILY [facility] Last Admin: 08/16/18 10:16 Dose: 5 mg Heparin Sodium (Porcine) (Heparin -) 5,000 unit SQ TID [facility] Last Admin: 08/16/18 06:43 Dose: Not Given Sodium Chloride (Normal Saline -) 1,000 mls @ 75 mls/hr IV ASDIR [facility] Last Admin: 08/15/18 21:38 Dose: 75 mls/hr Losartan Potassium (Cozaar -) 100 mg PO DAILY [facility] Last Admin: 08/16/18 10:15 Dose: 100 mg Morphine Sulfate (Morphine Sulfate) 1 mg IVPUSH Q3H PRN PRN Reason: PAIN LEVEL 6-10 - Objective Vital Signs: Vital Signs Temperature 98 F 08/16/18 10:11 Pulse Rate 68 08/16/18 10:11 Respiratory Rate 18 08/16/18 10:11 Blood Pressure 130/78 08/16/18 10:11 O2 Sat by Pulse Oximetry (%) 99 08/16/18 02:00 Constitutional: Yes: Well Nourished, No Distress, Calm Eyes: Yes: Conjunctiva Clear, EOM Intact. No: Sclera Icterus HENT: Yes: Atraumatic, Normocephalic Gastrointestinal: Yes: Soft, Tenderness (mild RUQ and epigastric), Other ( healed periumbilical scar). No: Tenderness, Rebound Genitourinary: No: CVA Tenderness - Left, CVA Tenderness - Right Extremities: No: Cool, Cyanosis Integumentary: No: Jaundice, Rash Neurological: Yes: Alert, Oriented Labs: CBC, BMP 08/16/18 05:30 08/16/18 05:30 CMP Sodium 140 mmol/L (136-145) 08/16/18 05:30 Potassium 3.9 mmol/L (3.5-5.1) 08/16/18 05:30 Chloride 110 mmol/L (98-107) H 08/16/18 05:30 Carbon Dioxide 22 mmol/L (21-32) 08/16/18 05:30 Anion Gap 8 MMOL/L (8-16) 08/16/18 05:30 BUN 15 mg/dL (7-18) 08/16/18 05:30 Creatinine 0.6 mg/dL (0.55-1.3) 08/16/18 05:30 Creat Clearance w eGFR > 60 (>60) 08/16/18 05:30 Random Glucose 95 mg/dL (74-106) 08/16/18 05:30 Calcium 8.3 mg/dL (8.5-10.1) L 08/16/18 05:30 Phosphorus 2.0 mg/dL (2.5-4.9) L 08/16/18 05:30 Magnesium 2.2 mg/dL (1.8-2.4) 08/16/18 05:30 Total Bilirubin 0.9 mg/dL (0.2-1) 08/16/18 05:30 AST 36 U/L (15-37) 08/16/18 05:30 ALT 106 U/L (13-61) H 08/16/18 05:30 Alkaline Phosphatase 107 U/L (45-117) 08/16/18 05:30 Total Protein 5.9 g/dl (6.4-8.2) L 08/16/18 05:30 Albumin 3.1 g/dl (3.4-5.0) L 08/16/18 05:30 Triglycerides Cancelled 08/15/18 09:00 Cholesterol Cancelled 08/15/18 09:00 Total LDL Cholesterol Cancelled 08/15/18 09:00 HDL Cholesterol 60 mg/dL (40-60) 08/15/18 07:18 Lipase 85 U/L (73-393) 08/15/18 07:18 TSH 1.39 uIU/ml (0.358-3.74) 08/15/18 07:18 - ....Imaging MRI: Image Reviewed (images personally reviewed - no apparent cbd stones, but report is pending, + gallstones) Problem List - Problems (1) Calculus of gallbladder without cholecystitis without obstruction Assessment/Plan: gallstones, likely biliary colic pain/tenderness minimal but still present RUQ/epigastric labs ok MRCP report pending Discussed with patient risks, benefits and alternatives of laparoscopic possible open cholecystectomy, including but not limited to bleeding, infection , injury to adjacent structures, bile leak or ductal injury, intraabdominal abscess, incisional hernia, need for further procedures; alternatives include delayed or no surgery - risks of this include recurrence of biliary colic, cholecystitis, cholangitis, pancreatitis. Patient desires to proceed with operation - will take to OR for above, presuming MRCP is negative. Informed consent signed for same. Code(s): K80.20 - CALCULUS OF GALLBLADDER W/O CHOLECYSTITIS W/O OBSTRUCTION (2) Periumbilical pain Code(s): R10.33 - PERIUMBILICAL PAIN (3) Nausea and vomiting Code(s): R11.2 - NAUSEA WITH VOMITING, UNSPECIFIED Qualifiers: Vomiting type: unspecified Vomiting Intractability: non-intractable Qualified Code(s): R11.2 - Nausea with vomiting, unspecified (4) Hypertension Assessment/Plan: on home meds Code(s): I10 - ESSENTIAL (PRIMARY) HYPERTENSION Qualifiers: Hypertension type: essential hypertension Qualified Code(s): I10 - Essential (primary) hypertension
--- NOTE | 2018-08-16 16:56 | PN ---
Progress Note, Physician Chief Complaint: Pt A&Ox3; intermittent abdominl discomfort. History of Present Illness: 72yo M with history of colon cancer, HTN, kidney stone presenting with chest pain that started around 11am. Pain is constant and gradually worsening, rated 4 -5/10 at first and now 8-9/10. Patient reports 3 episodes of NBNB vomiting. He has never had pain like this before. The pain does not radiate, and worsens upon palpation and taking a deep breath. Nothing makes the pain better or worse. No history of ulcers, H. pylori, or recent NSAID use. Last bowel movement was today and was a normal formed brown stool. Previous abdominal surgery 6 years ago. Reports cardiac workup with previous negative stress test about a year ago. Denies previous history of OH. Positive family history of OH, twin brother had OH at age 69. No fevers or chills. (When discussed further with pt, the "chest" pain was more in abdominal and lower back areas). Pt says he walks "all the time"; he likes to be physically active, and denies chest pain or dyspnea with exertion. Never smoked; no alcohol. - Current Medication List Current Medications: Active Medications Amlodipine Besylate (Norvasc -) 5 mg PO DAILY [facility] Last Admin: 08/16/18 10:16 Dose: 5 mg Heparin Sodium (Porcine) (Heparin -) 5,000 unit SQ TID [facility] Last Admin: 08/16/18 15:03 Dose: Not Given Sodium Chloride (Normal Saline -) 1,000 mls @ 75 mls/hr IV ASDIR [facility] Last Admin: 08/15/18 21:38 Dose: 75 mls/hr Losartan Potassium (Cozaar -) 100 mg PO DAILY [facility] Last Admin: 08/16/18 10:15 Dose: 100 mg Morphine Sulfate (Morphine Sulfate) 1 mg IVPUSH Q3H PRN PRN Reason: PAIN LEVEL 6-10 - Objective Vital Signs: Vital Signs Temperature 98.2 F 08/16/18 14:15 Pulse Rate 81 08/16/18 14:15 Respiratory Rate 18 08/16/18 14:15 Blood Pressure 128/82 08/16/18 14:15 O2 Sat by Pulse Oximetry (%) 99 08/16/18 09:00 Constitutional: Yes: Calm Eyes: Yes: WNL HENT: Yes: WNL Neck: Yes: WNL Cardiovascular: Yes: Regular Rate and Rhythm Respiratory: Yes: WNL Gastrointestinal: Yes: Soft ...Rectal Exam: Yes: Deferred Genitourinary: No: Anuria Breast(s): Yes: WNL Musculoskeletal: Yes: WNL Extremities: Yes: WNL Edema: No Peripheral Pulses WNL: Yes Integumentary: Yes: WNL Neurological: Yes: WNL Psychiatric: Yes: WNL Labs: CBC, BMP 08/16/18 05:30 08/16/18 05:30 INR, PTT INR 1.03 (0.83-1.09) 08/14/18 14:17 Abnormal Lab Results 08/16/18 05:30 Chloride 110 H Calcium 8.3 L Phosphorus 2.0 L ALT 106 H Total Protein 5.9 L Albumin 3.1 L - ....Imaging Other: Image Reviewed (telemetry: NSR) Problem List - Problems (1) Calculus of gallbladder without cholecystitis without obstruction Assessment/Plan: 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 From a cardiac standpoint, there are no absolute contraindications for Mr. Mitchell to undergo cholecystectomy. (2) Chest pain Assessment/Plan: atypical; primarily abdominal/lower back. TNI <0.02; f/u serially. Hx negative stress MIBI about one year ago. EKG: normal study. ECHO: normal LVEF; abnormal diastolic compliance. Code(s): R07.9 - CHEST PAIN, UNSPECIFIED Qualifiers: Chest pain type: unspecified Qualified Code(s): R07.9 - Chest pain, unspecified (3) Hypertension Code(s): I10 - ESSENTIAL (PRIMARY) HYPERTENSION Qualifiers: Hypertension type: essential hypertension Qualified Code(s): I10 - Essential (primary) hypertension (4) Nausea and vomiting Code(s): R11.2 - NAUSEA WITH VOMITING, UNSPECIFIED Qualifiers: Vomiting type: unspecified Vomiting Intractability: non-intractable Qualified Code(s): R11.2 - Nausea with vomiting, unspecified (5) Periumbilical pain Code(s): R10.33 - PERIUMBILICAL PAIN (6) Kidney stone Code(s): N20.0 - CALCULUS OF KIDNEY (7) Elevated transaminase level Code(s): R74.0 - NONSPEC ELEV OF LEVELS OF TRANSAMNS & LACTIC ACID DEHYDRGNSE
--- NOTE | 2018-08-16 17:06 | PN ---
GI Progress Note Subjective: No acute events MRI shows thickened GB wall and stones. non dilated biliary tract - Objective Vital Signs: Vital Signs Temperature 98.2 F 08/16/18 14:15 Pulse Rate 81 08/16/18 14:15 Respiratory Rate 18 08/16/18 14:15 Blood Pressure 128/82 08/16/18 14:15 O2 Sat by Pulse Oximetry (%) 99 08/16/18 09:00 Constitutional: Calm Eyes: No: Sclera Icterus Cardiovascular: Yes: Regular Rate and Rhythm Respiratory: Yes: CTA Bilaterally Gastrointestinal Inspection: No: Distention ...Auscultate: Yes: Normoactive Bowel Sounds ...Palpate: No: Hepatomegaly, Splenomegaly, Tenderness Edema: No (No LE edema) Labs: CBC, BMP 08/16/18 05:30 08/16/18 05:30 INR, PTT INR 1.03 (0.83-1.09) 08/14/18 14:17 - ....Imaging MRI: Report Reviewed Problem List - Problems (1) Biliary colic Assessment/Plan: Clinically well Improved LFTs Evaluated by surgery. For OR today Code(s): K80.50 - CALCULUS OF BILE DUCT W/O CHOLANGITIS OR CHOLECYST W/O OBST
[2018-08-16] MEDS ORDERED: CEFOXITIN SODIUM 2 GM IVPB ONE (18:39)
[2018-08-16] MEDS ORDERED: DEXAMETHASONE SOD PHOSPHATE 4 MG/1 ML VIAL ONE (18:39)
[2018-08-16] MEDS ORDERED: PROPOFOL 20 ML ONE (18:40)
[2018-08-16] MEDS ORDERED: ROCURONIUM BROMIDE 50 MG/5 ML VIAL ONE (18:41)
[2018-08-16] MEDS ORDERED: cefOXitin SODIUM 1 GM VIAL (RESTRICTED TO ID) IVPB ONE (18:52)
[2018-08-16] MEDS ORDERED: ePHEDrine SULFATE 50 MG/1 ML AMPULE ONE (18:58)
[2018-08-16] MEDS ORDERED: SODIUM CHLORIDE 0.9% P/F 10 ML VIAL IJ ONE (18:59)
[2018-08-16] MEDS ORDERED: BUPIVACAINE HCL/PF 0.5% (5MG/ML) 10 ML VIAL ONE (19:22)
[2018-08-16] MEDS ORDERED: BUPIVACAINE HCL/PF 0.5% (5MG/ML) 10 ML VIAL IJ ONE (19:57)
[2018-08-16] MEDS ORDERED: NEOSTIGMINE METHYLSULFATE 0.5 MG/ML - 10 ML MDV ONE (20:04)
[2018-08-16] MEDS ORDERED: GLYCOPYRROLATE 0.2 MG/1 ML VIAL ONE (20:06)
[2018-08-16] MEDS ORDERED: BENZOIN TINCTURE SWABSTICK TP ONE (20:18)
--- NOTE | 2018-08-16 20:37 | OP ---
Operative Note - Note: Operative Date: 08/16/18 Pre-Operative Diagnosis: symptomatic cholelithiasis with chronic cholecystitis Operation: laparoscopic cholecystectomy Findings: tense inflamed distended gallbladder, decompressed of ~40ml of bile; critical view identified; oozy liver bed cauterized after gallbladder partly peeled off, minimal bile spill from grasper hole at fundus, irrigated and suctioned clear; multiple stones palpable in gallbladder Post-Operative Diagnosis: Other (acute on chronic cholecystitis) Surgeon: Michael Hardy Destination Specialist: Mikal Matias (vicky/Sis Nair MS3) Anesthesiologist/MOLECULAR BIOLOGIST: Gary Hill Anesthesia: General, Local (20ml 0.5% marcaine) Specimens Removed: gallbladder to pathology Estimated Blood Loss (mls): 20 Fluid Volume Replaced (mls): 800 (crystalloid) Operative Report Dictated: Yes
[2018-08-16] MEDS ORDERED: ACETAMINOPHEN 1000 MG/100 ML VIAL (NON FORMULARY) IVPB ONE (20:39)
[2018-08-16] MEDS ORDERED: oxyCODONE HCL 5 MG TABLET PO PRN ×2 (20:41→21:26)
[2018-08-16] MEDS ORDERED: ACETAMINOPHEN INJECTION 100 ML IVPB ONE (20:49)
[2018-08-16] MEDS ORDERED: SODIUM CHLORIDE 1,000 ML IV SCH (21:26)
[2018-08-17] MEDS ORDERED: IBUPROFEN 600 MG TABLET (FP) PO SCH
[2018-08-17] MEDS: IBUPROFEN 600 MG TABLET (FP) PO SCH ×2 (00:09→06:48)
[2018-08-17] MEDS ORDERED: CEFOXITIN SODIUM 2 GM in DEXTROSE 5%-WATER - 100 ML IVPB ONE (03:00)
[2018-08-17] MEDS: HEPARIN NA (PORCINE) 5,000 UNITS/ML 1ML VIAL SQ SCH (06:48)
[2018-08-17] MEDS ORDERED: ACETAMINOPHEN 325 MG TABLET (FP) PO SCH ×2 (09:00)
[2018-08-17 09:49] LABS: HEMATOCRIT 38.5 % (35.4-49); HEMOGLOBIN 12.6 GM/dL (11.7-16.9); LYMPH % 7.5 % (8-40); MCH 30.3 pg (25.7-33.7); MCHC 32.7 g/dl (32.0-35.9); MEAN CELL VOLUME 92.4 fl (80-96); MEAN PLT VOLUME 8.3 fl (7.5-11.1); MONO % 5.4 % (3.8-10.2); NEUT % 87.1 % (42.8-82.8); PLATELET COUNT 157 K/MM3 (134-434); RBC 4.17 M/mm3 (4.00-5.60); RDW 13.4 % (11.9-15.9); WHITE BLOOD COUNT 9.3 K/mm3 (4.0-10.0)
[2018-08-17] MEDS ORDERED: LOSARTAN POTASSIUM 50 MG TABLET (FP) PO SCH (10:00)
[2018-08-17] MEDS ORDERED: amLODIPine BESYLATE 5 MG TABLET (FP) PO SCH (10:00)
[2018-08-17] MEDS ORDERED: AMPICILLIN NA/SULBACTAM NA 3 GM in SODIUM CHLORIDE 100 ML IVPB SCH (10:00)
[2018-08-17 10:16] LABS: ALBUMIN 2.8 g/dl (3.4-5.0); ALK PHOS 97 U/L (45-117); ANION GAP 7 MMOL/L (8-16); BILIRUBIN,TOTAL 0.5 mg/dL (0.2-1); BLOOD UREA NITROGEN 18 mg/dL (7-18); CHLORIDE 110 mmol/L (98-107); CO2 22 mmol/L (21-32); CREATININE 0.7 mg/dL (0.55-1.3); GLUCOSE,RANDOM 153 mg/dL (74-106); MAGNESIUM 2.4 mg/dL (1.8-2.4); PHOSPHOROUS 2.3 mg/dL (2.5-4.9); POTASSIUM 4.1 mmol/L (3.5-5.1); SGOT/AST 54 U/L (15-37); SGPT/ALT 104 U/L (13-61); SODIUM 139 mmol/L (136-145); TOT PROT 5.8 g/dl (6.4-8.2)
--- NOTE | 2018-08-17 11:26 | PN ---
Progress Note, Physician History of Present Illness: 72yo M with history of colon cancer, HTN, kidney stone presenting with chest pain that started around 11am. Pain is constant and gradually worsening, rated 4 -5/10 at first and now 8-9/10. Patient reports 3 episodes of NBNB vomiting. He has never had pain like this before. The pain does not radiate, and worsens upon palpation and taking a deep breath. Nothing makes the pain better or worse. No history of ulcers, H. pylori, or recent NSAID use. Last bowel movement was today and was a normal formed brown stool. Previous abdominal surgery 6 years ago. Reports cardiac workup with previous negative stress test about a year ago. Denies previous history of [place]. Positive family history of OK, twin brother had OK at age 69. No fevers or chills. (When discussed further with pt, the "chest" pain was more in abdominal and lower back areas). - Current Medication List Current Medications: Active Medications Acetaminophen (Tylenol -) 650 mg PO Q6H [facility] Last Admin: 08/17/18 09:50 Dose: 650 mg Amlodipine Besylate (Norvasc -) 5 mg PO DAILY [facility] Last Admin: 08/17/18 09:51 Dose: 5 mg Heparin Sodium (Porcine) (Heparin -) 5,000 unit SQ TID [facility] Last Admin: 08/17/18 06:48 Dose: 5,000 unit Sodium Chloride (Normal Saline -) 1,000 mls @ 75 mls/hr IV ASDIR [facility] Last Admin: 08/16/18 21:30 Dose: 0 mls Ampicillin Sodium/Sulbactam (Sodium 3 gm/ Sodium Chloride) 100 mls @ 200 mls/ hr IVPB Q6H-IV [facility] Ibuprofen (Motrin -) 600 mg PO Q6H [facility] Last Admin: 08/17/18 06:48 Dose: 600 mg Losartan Potassium (Cozaar -) 100 mg PO DAILY [facility] Last Admin: 08/17/18 09:50 Dose: 100 mg Oxycodone HCl (Roxicodone -) 5 mg PO Q6H PRN PRN Reason: Pain Level 7 - 10 BREAKTHROUGH - Objective Vital Signs: Vital Signs Temperature 97.6 F 08/17/18 09:55 Pulse Rate 59 L 08/17/18 09:55 Respiratory Rate 20 08/17/18 09:58 Blood Pressure 122/73 08/17/18 09:55 O2 Sat by Pulse Oximetry (%) 96 08/17/18 09:58 Eyes: Yes: WNL, Conjunctiva Clear, EOM Intact HENT: Yes: WNL, Atraumatic, Normocephalic Neck: Yes: WNL, Supple, Trachea Midline Cardiovascular: Yes: WNL, Regular Rate and Rhythm Respiratory: Yes: WNL, Regular, CTA Bilaterally Gastrointestinal: Yes: WNL, Normal Bowel Sounds Genitourinary: Yes: WNL Musculoskeletal: Yes: WNL Extremities: Yes: WNL Edema: No Integumentary: Yes: WNL Neurological: Yes: WNL, Alert, Oriented ...Motor Strength: WNL Psychiatric: Yes: WNL Labs: CBC, BMP 08/17/18 09:30 08/17/18 09:30 INR, PTT INR 1.03 (0.83-1.09) 08/14/18 14:17 Assessment/Plan - Problems (1) Calculus of gallbladder without cholecystitis without obstruction Assessment/Plan: 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 s/p lap choli POD #1 (2) Chest pain Assessment/Plan: atypical; primarily abdominal/lower back. TNI <0.02; f/u serially. Hx negative stress MIBI about one year ago. EKG: normal study. ECHO: normal LVEF; abnormal diastolic compliance. Code(s): R07.9 - CHEST PAIN, UNSPECIFIED Qualifiers: Chest pain type: unspecified Qualified Code(s): R07.9 - Chest pain, unspecified (3) Hypertension Code(s): I10 - ESSENTIAL (PRIMARY) HYPERTENSION Qualifiers: Hypertension type: essential hypertension Qualified Code(s): I10 - Essential (primary) hypertension (4) Nausea and vomiting Code(s): R11.2 - NAUSEA WITH VOMITING, UNSPECIFIED Qualifiers: Vomiting type: unspecified Vomiting Intractability: non-intractable Qualified Code(s): R11.2 - Nausea with vomiting, unspecified (5) Periumbilical pain Code(s): R10.33 - PERIUMBILICAL PAIN (6) Kidney stone Code(s): N20.0 - CALCULUS OF KIDNEY (7) Elevated transaminase level Code(s): R74.0 - NONSPEC ELEV OF LEVELS OF TRANSAMNS & LACTIC ACID DEHYDRGNSE
--- NOTE | 2018-08-17 13:05 | PN ---
Progress Note (short form) - Note Progress Note: Anesthesia Pt seen and examined S:Alert and awake comfortable O: Vital Signs Temperature 97.6 F 08/17/18 09:55 Pulse Rate 59 L 08/17/18 09:55 Respiratory Rate 20 08/17/18 09:58 Blood Pressure 122/73 08/17/18 09:55 O2 Sat by Pulse Oximetry (%) 96 08/17/18 09:58 CBC, BMP 08/17/18 09:30 08/17/18 09:30 A/P: Current Active Problems Biliary colic (Acute) Calculus of gallbladder without cholecystitis without obstruction (Acute) Chest pain (Acute) Elevated transaminase level (Acute) Hypertension (Acute) Nausea and vomiting (Acute) Periumbilical pain (Acute) s/p lap cholecystectomy Doing well post op Continue current care Gurvinder Pierce MD
[2018-08-17 15:43] VITALS: BP 127/69; PULSE 61; TEMP 97.8
--- NOTE | 2018-08-17 16:38 | PN ---
Progress Note, Physician History of Present Illness: s/p lap desiree for acute on chronic cholecystitis seen and examined in room, up and ambulating voided, had BM, tolerating diet pain controlled with alternating tyl/ibu no fever, labs ok today ready to go home - Current Medication List Current Medications: Active Medications Acetaminophen (Tylenol -) 650 mg PO Q6H [facility] Last Admin: 08/17/18 09:50 Dose: 650 mg Amlodipine Besylate (Norvasc -) 5 mg PO DAILY [facility] Last Admin: 08/17/18 09:51 Dose: 5 mg Heparin Sodium (Porcine) (Heparin -) 5,000 unit SQ TID [facility] Last Admin: 08/17/18 06:48 Dose: 5,000 unit Sodium Chloride (Normal Saline -) 1,000 mls @ 75 mls/hr IV ASDIR [facility] Last Admin: 08/16/18 21:30 Dose: 0 mls Ampicillin Sodium/Sulbactam (Sodium 3 gm/ Sodium Chloride) 100 mls @ 200 mls/ hr IVPB Q6H-IV [facility] Ibuprofen (Motrin -) 600 mg PO Q6H [facility] Last Admin: 08/17/18 06:48 Dose: 600 mg Losartan Potassium (Cozaar -) 100 mg PO DAILY [facility] Last Admin: 08/17/18 09:50 Dose: 100 mg Oxycodone HCl (Roxicodone -) 5 mg PO Q6H PRN PRN Reason: Pain Level 7 - 10 BREAKTHROUGH - Objective Vital Signs: Vital Signs Temperature 97.8 F 08/17/18 14:05 Pulse Rate 61 08/17/18 14:05 Respiratory Rate 20 08/17/18 14:05 Blood Pressure 127/69 08/17/18 14:05 O2 Sat by Pulse Oximetry (%) 96 08/17/18 09:58 Constitutional: Yes: Well Nourished, No Distress, Calm Eyes: Yes: Conjunctiva Clear, EOM Intact. No: Sclera Icterus HENT: Yes: Atraumatic, Normocephalic Gastrointestinal: Yes: Soft, Abdomen, Obese, Distention (mild). No: Tenderness (minimal incisional) Extremities: No: Cool, Cyanosis Integumentary: Yes: Incision (x4 dressed). No: Jaundice, Rash Wound/Incision: Yes: Steri Strips (under dressings), Dressing Dry and Intact ( x4 except subxiphoid - extra tegaderm replaced for open edge). No: Dressing Removed Neurological: Yes: Alert, Oriented. No: Unsteady Gait Labs: CBC, BMP 08/17/18 09:30 08/17/18 09:30 CMP Sodium 139 mmol/L (136-145) 08/17/18 09:30 Potassium 4.1 mmol/L (3.5-5.1) 08/17/18 09:30 Chloride 110 mmol/L (98-107) H 08/17/18 09:30 Carbon Dioxide 22 mmol/L (21-32) 08/17/18 09:30 Anion Gap 7 MMOL/L (8-16) L 08/17/18 09:30 BUN 18 mg/dL (7-18) 08/17/18 09:30 Creatinine 0.7 mg/dL (0.55-1.3) 08/17/18 09:30 Creat Clearance w eGFR > 60 (>60) 08/17/18 09:30 Random Glucose 153 mg/dL (74-106) H 08/17/18 09:30 Calcium 8.0 mg/dL (8.5-10.1) L 08/17/18 09:30 Phosphorus 2.3 mg/dL (2.5-4.9) L 08/17/18 09:30 Magnesium 2.4 mg/dL (1.8-2.4) 08/17/18 09:30 Total Bilirubin 0.5 mg/dL (0.2-1) 08/17/18 09:30 AST 54 U/L (15-37) H 08/17/18 09:30 ALT 104 U/L (13-61) H 08/17/18 09:30 Alkaline Phosphatase 97 U/L (45-117) 08/17/18 09:30 Creatine Kinase 82 IU/L (26-308) 08/14/18 14:17 Troponin I < 0.02 ng/ml (0.00-0.05) 08/15/18 07:18 C-Reactive Protein < 0.3 MG/DL (0.00-0.3) 08/14/18 18:37 Total Protein 5.8 g/dl (6.4-8.2) L 08/17/18 09:30 Albumin 2.8 g/dl (3.4-5.0) L 08/17/18 09:30 Triglycerides Cancelled 08/15/18 09:00 Cholesterol Cancelled 08/15/18 09:00 Total LDL Cholesterol Cancelled 08/15/18 09:00 HDL Cholesterol 60 mg/dL (40-60) 08/15/18 07:18 Lipase 85 U/L (73-393) 08/15/18 07:18 TSH 1.39 uIU/ml (0.358-3.74) 08/15/18 07:18 Problem List - Problems (1) Calculus of gallbladder without cholecystitis without obstruction Assessment/Plan: POD1 s/p laparoscopic cholecystectomy doing well completed antibiotic overnight labs ok this morning ambulating, voiding, tolerating diet, had BM, pain controlled with po nonnarcotics ok for d/c home with lifting restrictions to f/u in 2 weeks instructions in d/c plan Code(s): K80.20 - CALCULUS OF GALLBLADDER W/O CHOLECYSTITIS W/O OBSTRUCTION (2) Hypertension Assessment/Plan: on home meds, controlled Code(s): I10 - ESSENTIAL (PRIMARY) HYPERTENSION Qualifiers: Hypertension type: essential hypertension Qualified Code(s): I10 - Essential (primary) hypertension
--- NOTE | 2018-08-17 17:30 | DS ---
Physical Exam: SUBJECTIVE: Patient seen and examined this and examined this morning at the bedside. Tolerated regular diet for breakfast and lunch. Abdominal pain is controlled. Able to ambulate to the restroom and void without difficulty. Passed flatus. Using his incentive spirometer regularly. Denies any fevers, chills, chest pain SOB over night. OBJECTIVE: Vital Signs Period Temp Pulse Resp BP Sys/Davies Pulse Ox Last 24 Hr 97.4 F-98.9 F 59-914 12-20 90-127/51-76 94-96 PHYSICAL EXAM GENERAL: A&Ox3, NAD HEAD: NCAT EYES: PERRL, EOMI THROAT: oropharynx clear without exudates, MMM NECK: No JVD LUNGS: Breath sounds equal, clear to auscultation bilaterally, no wheezes HEART: Regular rate and rhythm, S1, S2 without murmur ABDOMEN: Soft, nontender, not distended, + bowel sounds. 4 surgical incision sites covered with bandage, Clean external dressings that are intact without any active drainage, No surrounding erythema or swelling. EXTREMITIES: 2+ pulses, No peripheral edema. NEUROLOGICAL: Cranial nerves II-XII intact. Normal speech. 5/5 Muscle strength to Handgrip, Elbow flexion/extension, Hip flexion/extension, Dorsiflexion, plantarflexion. Gross sensation intact. SKIN: Warm, dry, no rashes or lesions noted LABS Laboratory Results - last 24 hr 08/16/18 08/17/18 08/17/18 05:30 09:30 09:30 WBC 9.3 RBC 4.17 Hgb 12.6 Hct 38.5 MCV 92.4 MCH 30.3 MCHC 32.7 RDW 13.4 Plt Count 157 MPV 8.3 Absolute Neuts (auto) 8.1 H Neutrophils % 87.1 H Lymphocytes % 7.5 L D Monocytes % 5.4 Eosinophils % 0.0 D Basophils % 0.0 Nucleated RBC % 0 Sodium 139 Potassium 4.1 Chloride 110 H Carbon Dioxide 22 Anion Gap 7 L BUN 18 Creatinine 0.7 Creat Clearance w eGFR > 60 Random Glucose 153 H Calcium 8.0 L Phosphorus 2.3 L Magnesium 2.4 Total Bilirubin 0.5 AST 54 H ALT 104 H Alkaline Phosphatase 97 Total Protein 5.8 L Albumin 2.8 L Hep C Ab Diagnostic <0.1 Liver Fibrosis Interp IMAGING: -Abdominal US: Cholelithiasis, Fatty infiltration of the liver -CT A/P with Contrast: Questionable tiny hiatus hernia. Gallstones without CT evidence of acute cholecystitis. Questionable mild fatty infiltration of the liver. No obstructing ureteral stone is identified. Postop sutures around the distal sigmoid colon without gross wall thickening or obstruction. -CXR: No acute chest pathology. Tracheal deviation to the right from a prominent knob. Right midlung atelectasis or scarring by horizontal fissure. -EKG: Sinus bradycardia (VR 55), 1st degree heart block, no ARIAS/STD, QTc-413 -ECHO: LV Systolic function is normal, EF 65-70%. No regional wall motion abnormalities. No significant valvular regurgitation. No Pericardial effusion. -MRCP: Cholelithiasis with thickened gallbladder wall compatible with cholecystitis. No evidence of dilatation of the intrahepatic biliary radicles, common hepatic and common bile ducts. No evidence of choledocholithiasis. No evidence of pancreatic duct dilatation or acute pancreatitis. HOSPITAL COURSE: Date of Admission:08/16/18 Date of Discharge: 08/17/18 Patient presented with mid epigastric Abdominal pain. Cardiology, GI, and General surgery were all consulted. Patient mentioned epigastric pain with a strong family hx of CAD, thus ACS was ruled out given the troponins < 0.02 x3, EKG findings and Echo results. CT A/P and Abdominal US (noted above) revealed Cholelithiasis. Patients transaminases began to rise and initial imaging was followed up with MRCP that suggested Cholecystitis. A laparoscopic cholecystectomy on 08/16/[address] Hardy with minimal bile spill. Post-Op , patient did not have any complications from anesthesia. Additionally, he was able to tolerate diet, pass flatus, have a BM, empty his bladder and ambulate all with minimal difficulty. His pain was controlled and he remained afebrile without an elevated WBC count. Patient was discharged home on POD#1 with strict instruction on activity and to follow up with Dr. Hardy within 2 weeks. Minutes to complete discharge: 40 Discharge Summary Reason For Visit: CHEST PAIN BILARY COLIC Condition: Improved - Instructions Diet, Activity, Other Instructions: Postoperative instructions: You had a laparoscopic cholecystectomy on 08/16/[address] Michael Hardy of [facility]. Activity: Resume your usual activities gradually, but no heavy exertion or lifting more than 10-15 pounds for 1 month. Remove dressings 48 hours after surgery; sticky tapes underneath will fall off by themselves. You may shower daily starting then, just pat the incision areas dry. No bath or swimming until skin incisions have healed. Eat lightly at first, but advance to your usual diet as tolerated. Pain: For pain, you may use and alternate Tylenol (acetaminophen) 1-2 pills and/ or ibuprofen 200 mg (1-3 pills) every 6 hours each as needed; this means that you can take one OR the other at 3-hour intervals. Do not take more than 4000mg of acetaminophen in a day. Take medications as prescribed or indicated on the labeling. Follow-up: Call Dr. Hardy's office at [phone] to make your postop appointment (Wednesday in approximately 2 weeks after surgery). Clinic is held in the [facility] on the first floor of [facility]. Call the office if you have: * increasing pain not responsive to pain medication * fever of 101F or higher * vomiting * unusual or increasing bleeding or drainage from wounds * increasing redness or swelling at wound sites Also, see your primary medical doctor within 1-2 weeks. Referrals: Michael Hardy MD [Staff Physician] - 2 Weeks Disposition: HOME - Home Medications Comprehensive Discharge Medication List: Ambulatory Orders Amlodipine Besylate 5 mg PO DAILY 08/15/18 Losartan Potassium 100 mg PO DAILY 08/15/18 Acetaminophen [Tylenol .Regular Strength -] 650 mg PO Q6H tablet 08/17/18 Ibuprofen [Motrin -] 600 mg PO Q6H tablet 08/17/18 This patient is new to me today: No Emergency Visit: Yes ED Registration Date: 08/16/18 Care time: The patient presented to the Emergency Department on the above date and was hospitalized for further evaluation of their emergent condition. Critical Care patient: No - Discharge Referral Referred to [facility] Med P.C.: No
--- NOTE | 2018-08-17 19:09 | PN ---
Teaching Attending Note Name of Resident: Dorys Dahl ATTENDING PHYSICIAN STATEMENT I saw and evaluated the patient. I reviewed the resident's note and discussed the case with the resident. I agree with the resident's findings and plan as documented. SUBJECTIVE: No fever or chills. No abd pain , tolerated food OBJECTIVE: NAD Cv: RRR Lungs: CATB Abd: ND , NT, nl BS . surgical wounds with bandages Ext : no edema ASSESSMENT AND PLAN: 72 y/o man who presented with abd pain and was found to have acute cholecystitis 1- Acute cholecystitis : s/p CCY. - tolerated food . - LFts trended down - dc home with surgical f/u - d/w dr. Hardy who indicated no need for Abx after sx
[2018-08-18 00:12] LABS: HBSAG SCREEN Negative (Negative); HEP A AB, IGM Negative (Negative); HEP B CORE AB, TOT Positive (Negative)
--- NOTE | 2018-08-18 17:26 | PATH ---
Surgical Pathology Report Patient Name: MYCHAL GUTIERREZ [facility]. Rec. #: [id number] /Age/Gender: 1945 (Age: 72) / M Account: [id number] Location: 4 W TELEMETRY U Taken: 08/16/2018 Received: 08/17/2018 Reported: 08/18/2018 Physicians: Adelina Silva M.D. Specimen(s) Received GALLBLADDER Clinical History Biliary colic, chronic cholecystitis Final Diagnosis GALLBLADDER, LAPAROSCOPIC CHOLECYSTECTOMY: ACUTE GANGRENOUS CHOLECYSTITIS AND CHOLELITHIASIS. Electronically Signed Glenis Harris M.D. Gross Description Received in formalin, labeled "gallbladder," is a 7.8 x 3.7 x 2.8 cm. gallbladder with a 0.2 cm. in length portion of cystic duct attached. The outer surface is singleton-nicholas with multifocal defects and varies from smooth to shaggy. The lumen contains red blood as well as abundant yellow, irregular to fragmented choleliths ranging from 0.1-1.7 cm in greatest dimension. The mucosa is hyperemic and focally necrotic. The wall of the gallbladder ranges from 0.1-0.5 cm. in thickness. Importer Or Exporter sections are submitted in one cassette. /08/17/201808/17/2018
--- NOTE | 2018-08-18 22:15 | EKG ---
Test Reason : Blood Pressure : / mmHG Vent. Rate : 055 BPM Atrial Rate : 055 BPM P-R Int : 186 ms QRS Dur : 090 ms QT Int : 432 ms P-R-T Axes : 024 -22 016 degrees QTc Int : 413 ms SINUS BRADYCARDIA OTHERWISE NORMAL ECG NO PREVIOUS ECGS AVAILABLE Confirmed by GENEVIEVE JACKSON MD ([id number]) on 08/18/2018 10:15:17 PM Referred By: Confirmed By:GENEVIEVE JACKSON MD
== END 2018-08-17 17:26 | disposition home or self-care (01) | DRG 406 ==
LOC: JER 13:25 → JERBED 18:02 → J4W 08-16 01:24 → OBSVTOIN 08-16 14:16
PROVIDERS: ADMIT Internal Medicine; ATTEND Internal Medicine
PROC: 0FQ04ZZ Repair Liver, Percutaneous Endoscopic Approach (ICD-10-PCS; 2018-08-16)
PROC: 0FT44ZZ Resection of Gallbladder, Percutaneous Endoscopic Approach (ICD-10-PCS; principal; 2018-08-16 15:00)
DX: K80.00 Calculus of gallbladder with acute cholecystitis without obstruction (principal); J98.11 Atelectasis; K91.61 Intraoperative hemorrhage and hematoma of a digestive system organ or structure complicating a digestive system procedure; I10 Essential (primary) hypertension; R00.1 Bradycardia, unspecified; I44.0 Atrioventricular block, first degree; K44.9 Diaphragmatic hernia without obstruction or gangrene; K76.0 Fatty (change of) liver, not elsewhere classified; R07.89 Other chest pain; R11.2 Nausea with vomiting, unspecified; R10.33 Periumbilical pain; N20.0 Calculus of kidney; R74.0 Nonspecific elevation of levels of transaminase and lactic acid dehydrogenase [LDH]; Z85.038 Personal history of other malignant neoplasm of large intestine
CPT/HCPCS: 36415; 71046-TC-FY; 74177-TC; 74181-TC; 76705-TC; 80053; 80061; 81003; 82272; 82550; 83690; 83721; 83735; 84100; 84443; 84484; 85025; 85610; 86140; 86704; 86706; 86708; 86803; 87340; 88304-TC; 93005; 93010; 93306-TC; 94010; 94760; 99285-25; G0378; J0131; J1644; J7030

== ENCOUNTER 2024-05-29 22:07 | Inpatient (IN) | payer OTHER ==
[2024-05-29 22:20] VITALS: BMI 30.2
[2024-05-29] MEDS ORDERED: ACETAMINOPHEN INJECTION 100 ML IVPB ONE (23:06)
[2024-05-29] MEDS: ACETAMINOPHEN 1000 MG/100 ML BAG IVPB ONE (23:10)
[2024-05-29] MEDS: SODIUM CHLORIDE 0.9% 500 ML INFUS.BAG IV ONE (23:10)
[2024-05-29 23:39] LABS: HEMATOCRIT 38.4 % (35.4-49); HEMOGLOBIN 13.3 GM/dL (11.7-16.9); MCH 31.2 pg (25.7-33.7); MCHC 34.6 g/dl (32.0-35.9); MEAN CELL VOLUME 90.1 fl (80-96); MEAN PLT VOLUME 7.5 fl (7.5-11.1); PLATELET COUNT 181 10^3/uL (134-434); RBC 4.26 M/mm3 (4.00-5.60); RDW 13.6 % (11.9-15.9); WHITE BLOOD COUNT 5.7 K/mm3 (4.0-10.0)
[2024-05-29 23:42] LABS: INR 1.13 (0.83-1.09); PROTHROMBIN TIME (PATIENT) 12.7 SEC (9.7-13.0)
[2024-05-29 23:43] LABS: VENOUS BASE EXCESS -0.2 mmol/L (-2-2); VENOUS O2 SATURATION 34.9 % (70-80); VENOUS PCO2 45.7 mmHg (38-52); VENOUS PH 7.365 (7.310-7.410)
[2024-05-29 23:45] LABS: ACTIVATED PTT 32.6 SECONDS (25.2-36.5)
[2024-05-29 23:58] LABS: POTASSIUM 3.7 mmol/L (3.5-5.1)
[2024-05-29 23:59] LABS: CALCIUM 8.9 mg/dL (8.5-10.1)
[2024-05-30] LABS: ALBUMIN 3.6 g/dl (3.4-5.0); BLOOD UREA NITROGEN 14.5 mg/dL (7-18)
[2024-05-30 00:03] LABS: CREATININE 1.1 mg/dL (0.55-1.3)
[2024-05-30 00:05] LABS: BILIRUBIN,TOTAL 0.6 mg/dL (0.2-1)
[2024-05-30] MEDS ORDERED: ONDANSETRON 4 MG/2 ML VIAL ONE (00:08)
[2024-05-30] MEDS ORDERED: PANTOPRAZOLE SODIUM 40 MG VIAL ONE (00:08)
[2024-05-30 00:09] LABS: LACTIC ACID 2.6 mmol/L (0.4-2.0)
[2024-05-30] MEDS: ONDANSETRON 4 MG/2 ML VIAL IVPUSH ONE (00:15)
[2024-05-30] MEDS: PANTOPRAZOLE SODIUM 40 MG VIAL IVPUSH ONE (00:15)
[2024-05-30 00:23] LABS: ANISOCYTOSIS 0; MACROCYTOSIS 0
[2024-05-30] MEDS: SODIUM CHLORIDE 0.9% 500 ML INFUS.BAG IV ONE (02:00)
[2024-05-30] MEDS: methylPREDNISolone NA SUCC 125 MG/2 ML VIAL IVPUSH ONE (02:50)
[2024-05-30] MEDS ORDERED: methylPREDNISolone NA SUCC 125 MG/2 ML VIAL ONE (02:52)
[2024-05-30] MEDS ORDERED: CEFTRIAXONE 1 GM/50 ML BAG ONE (02:52)
[2024-05-30] MEDS: CEFTRIAXONE 1 GM in DEXTROSE 5%-WATER - 100 ML IVPB ONE (03:03)
[2024-05-30] MEDS ORDERED: AZITHROMYCIN IVPB 500 MG/250 ML BAG IVPB ONE (03:11)
[2024-05-30 03:12] LABS: EPI CELLS 6 /uL (0-25.1); HYALINE CASTS 0 /uL (0-3.1); PH,URINE 5.5 (5.0-8.0); URINE APPEARANCE CLEAR; URINE BACTERIA 3 /uL (0-1359); URINE BILIRUBIN NEGATIVE (NEGATIVE); URINE COLOR YELLOW; URINE GLUCOSE (UA) NEGATIVE (NEGATIVE); URINE KETONE 1+ (NEGATIVE); URINE LEUK ESTERASE TRACE (NEGATIVE); URINE NITRITE NEGATIVE (NEGATIVE); URINE PROTEIN NEGATIVE (NEGATIVE); URINE RBC 13 /uL (0-23.9); URINE WBC 48 /uL (0-25.8)
[2024-05-30] MEDS: AZITHROMYCIN IVPB 500 MG in DEXTROSE 5%-WATER - 250 ML IVPB ONE (03:17)
[2024-05-30] MEDS: REMDESIVIR 200 MG in SODIUM CHLORIDE 250 ML IVPB ONE ×2 (04:22→11:00)
[2024-05-30] MEDS ORDERED: ACETAMINOPHEN 1000 MG/100 ML BAG IVPB PRN (05:29)
[2024-05-30 06:25] LABS: BASO % 0.4 % (0-2.0); EOS % 0.4 % (0-4.5); HEMATOCRIT 33.7 % (35.4-49); HEMOGLOBIN 11.6 GM/dL (11.7-16.9); LYMPH % 17.8 % (8-40); MCH 30.8 pg (25.7-33.7); MCHC 34.2 g/dl (32.0-35.9); MEAN CELL VOLUME 90.1 fl (80-96); MEAN PLT VOLUME 7.7 fl (7.5-11.1); MONO % 14.3 % (3.8-10.2); NEUT % 67.1 % (42.8-82.8); PLATELET COUNT 158 10^3/uL (134-434); RBC 3.74 M/mm3 (4.00-5.60); RDW 13.3 % (11.9-15.9); WHITE BLOOD COUNT 4.8 K/mm3 (4.0-10.0)
[2024-05-30 06:45] LABS: CALCIUM 8.4 mg/dL (8.5-10.1)
[2024-05-30 06:46] LABS: ALBUMIN 3.3 g/dl (3.4-5.0); BLOOD UREA NITROGEN 16.7 mg/dL (7-18)
[2024-05-30 06:49] LABS: CREATININE 1.1 mg/dL (0.55-1.3)
[2024-05-30 06:51] LABS: BILIRUBIN,TOTAL 0.5 mg/dL (0.2-1); TOT PROT 6.1 g/dl (6.4-8.2)
[2024-05-31 08:06] LABS: BASO % 0.1 % (0-2.0); HEMATOCRIT 34.3 % (35.4-49); HEMOGLOBIN 11.9 GM/dL (11.7-16.9); LYMPH % 14.4 % (8-40); MCH 30.8 pg (25.7-33.7); MCHC 34.6 g/dl (32.0-35.9); MEAN CELL VOLUME 89.1 fl (80-96); MEAN PLT VOLUME 7.9 fl (7.5-11.1); MONO % 10.3 % (3.8-10.2); NEUT % 75.2 % (42.8-82.8); PLATELET COUNT 182 10^3/uL (134-434); RBC 3.85 M/mm3 (4.00-5.60); RDW 13.4 % (11.9-15.9); WHITE BLOOD COUNT 9.1 K/mm3 (4.0-10.0)
[2024-05-31 08:23] LABS: CALCIUM 8.9 mg/dL (8.5-10.1)
[2024-05-31 08:25] LABS: ALBUMIN 3.6 g/dl (3.4-5.0); BLOOD UREA NITROGEN 19.9 mg/dL (7-18)
[2024-05-31 08:27] LABS: CREATININE 1.1 mg/dL (0.55-1.3)
[2024-05-31 08:29] LABS: BILIRUBIN,TOTAL 0.6 mg/dL (0.2-1)
[2024-05-31] MEDS: PANTOPRAZOLE SODIUM 40 MG VIAL IVPUSH SCH (10:33)
[2024-05-31] MEDS: REMDESIVIR 100 MG in SODIUM CHLORIDE 250 ML IVPB SCH (10:34)
[2024-05-31] MEDS: AZITHROMYCIN IVPB 500 MG/250 ML BAG IVPB SCH (10:35)
[2024-05-31] MEDS: amLODIPine BESYLATE 5 MG TABLET (FP) PO SCH (10:35)
[2024-05-31] MEDS: CEFTRIAXONE 1 GM in DEXTROSE 5%-WATER - 50 ML IVPB SCH (11:51)
[2024-05-31] MEDS: QUEtiapine FUMARATE 25 MG TABLET PO SCH (16:36)
[2024-05-31] MEDS: DEXAMETHASONE 4 MG TABLET (FP) PO SCH (21:45)
[2024-06-01 07:57] LABS: BASO % 0.1 % (0-2.0); HEMATOCRIT 37.2 % (35.4-49); LYMPH % 11.6 % (8-40); MCH 31.4 pg (25.7-33.7); MCHC 34.9 g/dl (32.0-35.9); MEAN CELL VOLUME 89.9 fl (80-96); MONO % 1.6 % (3.8-10.2); NEUT % 86.7 % (42.8-82.8); PLATELET COUNT 183 10^3/uL (134-434); RBC 4.13 M/mm3 (4.00-5.60); RDW 13.8 % (11.9-15.9); WHITE BLOOD COUNT 6.9 K/mm3 (4.0-10.0)
[2024-06-01 08:14] LABS: POTASSIUM 4.2 mmol/L (3.5-5.1)
[2024-06-01 08:25] LABS: ALBUMIN 4.2 g/dl (3.4-5.0); BLOOD UREA NITROGEN 19.3 mg/dL (7-18); CALCIUM 9.4 mg/dL (8.5-10.1)
[2024-06-01 08:27] LABS: BILIRUBIN,TOTAL 0.4 mg/dL (0.2-1); TOT PROT 7.7 g/dl (6.4-8.2)
[2024-06-01] MEDS: HALOPERIDOL LACTATE 5 MG/ML IM ONE (11:51)
[2024-06-01] MEDS: hydrALAZINE HCL 20 MG/ML VIAL IVPUSH PRN (17:34)
[2024-06-01] MEDS: VALSARTAN 160 MG TABLET PO SCH (17:34)
[2024-06-02] MEDS: CEFUROXIME AXETIL 500 MG TABLET PO SCH (21:46)
[2024-06-03 08:49] LABS: BASO % 0.2 % (0-2.0); HEMOGLOBIN 13.6 GM/dL (11.7-16.9); LYMPH % 26.2 % (8-40); MCH 30.5 pg (25.7-33.7); MEAN CELL VOLUME 89.7 fl (80-96); MEAN PLT VOLUME 7.9 fl (7.5-11.1); MONO % 9.5 % (3.8-10.2); NEUT % 64.1 % (42.8-82.8); PLATELET COUNT 215 10^3/uL (134-434); RBC 4.46 M/mm3 (4.00-5.60); RDW 13.8 % (11.9-15.9); WHITE BLOOD COUNT 8.6 K/mm3 (4.0-10.0)
[2024-06-03 09:02] LABS: POTASSIUM 3.9 mmol/L (3.5-5.1)
[2024-06-03 09:06] LABS: ALBUMIN 4.2 g/dl (3.4-5.0); BLOOD UREA NITROGEN 26.1 mg/dL (7-18); CALCIUM 9.6 mg/dL (8.5-10.1)
[2024-06-03 09:10] LABS: CREATININE 1.2 mg/dL (0.55-1.3)
[2024-06-03 09:11] LABS: BILIRUBIN,TOTAL 0.5 mg/dL (0.2-1); TOT PROT 7.7 g/dl (6.4-8.2)
[2024-06-03] MEDS: HEPARIN NA (PORCINE) 5,000 UNITS/ML 1ML VIAL SQ SCH (21:53)
[2024-06-04] MEDS: PANTOPRAZOLE 40 MG TABLET PO SCH (09:40)
[2024-06-04 15:58] VITALS: RESP 18
[2024-06-06 10:37] VITALS: BP 153/107; PULSE 78; TEMP 97.7
== END 2024-06-06 13:56 | DRG 177 ==
LOC: JER 22:07 → JERBED 05-30 03:58 → J4W 05-30 16:35
PROVIDERS: ADMIT Internal Medicine; ATTEND Internal Medicine
PROC: XW033E5 Introduction of Remdesivir Anti-infective into Peripheral Vein, Percutaneous Approach, New Technology Group 5 (ICD-10-PCS; principal; 2024-05-30)
DX: U07.1 COVID-19 (principal); G93.41 Metabolic encephalopathy; J69.0 Pneumonitis due to inhalation of food and vomit; K92.0 Hematemesis; I10 Essential (primary) hypertension; E78.5 Hyperlipidemia, unspecified
CPT/HCPCS: 0241U-QW; 36415; 70450-TC; 71045-TC-FY; 80053; 81003; 82803; 83605; 84439; 84443; 84484; 85025; 85610; 85730; 86850; 86900; 86901; 87040; 87086; 87635; 87899; 93005; 93010; 97116-GP; 97162-GP; 99285-25; J0131; J0248; J1644

== ENCOUNTER 2024-09-28 09:27 | Inpatient (IN) | payer OTHER ==
[2024-09-28] MEDS ORDERED: RAPID SEQUENCE INTUBATION KIT NR ONE (09:41)
[2024-09-28] MEDS ORDERED: ROCURONIUM BROMIDE 50 MG/5 ML SYRINGE ONE (09:44)
[2024-09-28] MEDS: ETOMIDATE 40 MG/20 ML VIAL IVPUSH ONE (09:49)
[2024-09-28] MEDS: ROCURONIUM BROMIDE 50 MG/5 ML VIAL IV ONE (09:50)
[2024-09-28] MEDS ORDERED: MIDAZOLAM IN 0.9 % SOD.CHLORID 1 MG/1 ML PLAST..BAG ONE (10:00)
[2024-09-28] MEDS: MIDAZOLAM IN 0.9 % SOD.CHLORID 100 MG/100 ML PLAST..BAG IVPB SCH (10:05)
[2024-09-28 10:51] LABS: ARTERIAL BLD GAS O2 SATURATION 99.8 % (95-98); ARTERIAL BLOOD GAS BASE EXCESS -1.8 mmol/L (-2-2); ARTERIAL BLOOD GAS PO2 413.2 mmHg (80-100); ARTERIAL BLOOD GAS pH 7.383 (7.350-7.450)
[2024-09-28 10:54] LABS: ALLENS TEST POSITIVE
[2024-09-28 10:55] LABS: VENT MODE A/C; VENT RATE 14
[2024-09-28] MEDS: DEXTROSE 50%-WATER - 25 GM/50 ML VIAL IVPUSH ONE ×3 (11:44→21:28)
[2024-09-28 11:45] LABS: BASO % 0.5 % (0-2.0); HEMATOCRIT 42.4 % (35.4-49); HEMOGLOBIN 14.6 GM/dL (11.7-16.9); LYMPH % 23.5 % (8-40); MCH 30.5 pg (25.7-33.7); MCHC 34.5 g/dl (32.0-35.9); MEAN CELL VOLUME 88.6 fl (80-96); MEAN PLT VOLUME 7.3 fl (7.5-11.1); MONO % 9.3 % (3.8-10.2); NEUT % 61.7 % (42.8-82.8); PLATELET COUNT 286 10^3/uL (134-434); RBC 4.79 M/mm3 (4.00-5.60); RDW 13.9 % (11.9-15.9); WHITE BLOOD COUNT 8.1 K/mm3 (4.0-10.0)
[2024-09-28] MEDS ORDERED: DEXTROSE 50%-WATER 25 GM/50 ML DISP.SYRIN ONE ×2 (11:45→21:24)
[2024-09-28 11:50] LABS: CHLORIDE 102 mmol/L (98-107); INR 1.08 (0.83-1.09); POTASSIUM 3.3 mmol/L (3.5-5.1); PROTHROMBIN TIME (PATIENT) 12.4 SEC (9.7-13.0); SODIUM 137 mmol/L (136-145)
[2024-09-28 11:53] LABS: ACTIVATED PTT 42.6 SECONDS (25.2-36.5); CALCIUM 9.3 mg/dL (8.5-10.1)
[2024-09-28 11:54] LABS: ANION GAP 10 mmol/L (4-13); BLOOD UREA NITROGEN 10.6 mg/dL (7-18); CO2 26 mmol/L (21-32)
[2024-09-28 11:55] LABS: GLUCOSE,RANDOM 41 mg/dL (74-106)
[2024-09-28 11:56] LABS: SGOT/AST 47 U/L (15-37); SGPT/ALT 26 U/L (13-61)
[2024-09-28 11:57] LABS: CHOLESTEROL 192 mg/dL (50-200); CREATININE 1.1 mg/dL (0.55-1.3)
[2024-09-28 11:58] LABS: BILIRUBIN,TOTAL 0.7 mg/dL (0.2-1); LDL CHOLESTEROL (ONLY SJRH) 99 mg/dL (5-100); TOT PROT 7.5 g/dl (6.4-8.2)
[2024-09-28 11:59] LABS: ALK PHOS 101 U/L (45-117); HDL CHOLESTEROL 79 mg/dL (40-60)
[2024-09-28] MEDS: DEXTROSE 5%-LACTATED RINGERS 1,000 ML IV SCH ×2 (12:11→15:06)
[2024-09-28 12:16] LABS: LACTIC ACID 2.6 mmol/L (0.4-2.0)
[2024-09-28 12:32] LABS: MAGNESIUM 2.2 mg/dL (1.8-2.4)
[2024-09-28 12:36] LABS: PHOSPHOROUS 4.3 mg/dL (2.5-4.9)
[2024-09-28] MEDS ORDERED: PIPERACILLIN/TAZOB 4.5 GM 4.5 GM/100 ML BAG IVPB ONE (12:45)
[2024-09-28] MEDS ORDERED: ASPIRIN 300 MG SUPP.RECT RC ONE (12:46)
[2024-09-28] MEDS: PIPERACILLIN/TAZOB 4.5 GM 4.5 GM in DEXTROSE 5%-WATER 100 ML IVPB ONE (13:01)
[2024-09-28] MEDS: ASPIRIN 300 MG SUPP.RECT RC ONE (13:01)
[2024-09-28] MEDS ORDERED: HEPARIN NA (PORCINE) 5,000 UNITS/ML 1ML VIAL IVPUSH PRN ×2 (13:29)
[2024-09-28] MEDS: LACTATED RINGERS SOLUTION 1000 ML INFUS.BAG IV ONE ×4 (13:39→21:32)
[2024-09-28] MEDS ORDERED: NOREPINEPHRINE BITARTRATE 4 MG/4 ML ML IV ONE (13:53)
[2024-09-28] MEDS: NOREPINEPHRINE BITARTRATE 4,000 MCG in DEXTROSE 5%-WATER - 496 ML IV SCH (14:00)
[2024-09-28] MEDS ORDERED: PIPERACILLIN/TAZOB 3.375 GM 3.375 GM in DEXTROSE 5%-WATER - 50 ML IVPB SCH (15:00)
[2024-09-28] MEDS: HEPARIN INFUSION - 25,000 UNITS/500 ML INFUS.BAG IVPB SCH (15:05)
[2024-09-28] MEDS: HEPARIN NA (PORCINE) 5,000 UNITS/ML 1ML VIAL IVPUSH ONE (15:06)
[2024-09-28 16:30] LABS: ARTERIAL BLD GAS O2 SATURATION 98.9 % (95-98); ARTERIAL BLOOD GAS BASE EXCESS -1.1 mmol/L (-2-2); ARTERIAL BLOOD GAS PO2 143.9 mmHg (80-100); ARTERIAL BLOOD GAS pH 7.435 (7.350-7.450)
[2024-09-28 16:31] LABS: ALLENS TEST POSITIVE
[2024-09-28 16:32] LABS: VENT MODE AC; VENT RATE 14
[2024-09-28] MEDS: VANCOMYCIN PREMIX 1.75 GM 1,750 MG/350 ML PIGGYBACK IVPB ONE (17:29)
[2024-09-28] MEDS: LACTATED RINGERS SOLUTION 1,000 ML/1,000 ML INFUS.BAG IV SCH (17:30)
[2024-09-28] MEDS: MUPIROCIN 2% TOPICAL OINTMENT FOR DECOLONIZATION NS SCH (17:45)
[2024-09-28] MEDS: PIPERACILLIN/TAZOB 3.375 GM 50 ML IVPB SCH (20:32)
[2024-09-28] MEDS: DEXTROSE 10%-WATER - 1,000 ML IV SCH (20:39)
[2024-09-28] MEDS: CHLORHEXIDINE GLUCONATE 4% CLEANSER FOR DECOLONIZATION TP SCH (21:32)
[2024-09-28 21:36] LABS: EPI CELLS >36 /uL (0-25.1); HYALINE CASTS 1 /uL (0-3.1); URINE APPEARANCE TURBID; URINE BILIRUBIN 1+ (NEGATIVE); URINE COLOR RED; URINE GLUCOSE (UA) NEGATIVE (NEGATIVE); URINE KETONE NEGATIVE (NEGATIVE); URINE LEUK ESTERASE 2+ (NEGATIVE); URINE NITRITE POSITIVE (NEGATIVE); URINE PROTEIN 2+ (NEGATIVE); URINE RBC 44790 /uL (0-23.9); URINE UROBILINOGEN 0.2 mg/dL (0.2-1.0); URINE WBC 331 /uL (0-25.8)
[2024-09-28 21:47] LABS: URINE BACTERIA 25-30 /uL (0-1359)
[2024-09-28 22:17] LABS: BASO % 0.4 % (0-2.0); EOS % 5.2 % (0-4.5); HEMATOCRIT 31.7 % (35.4-49); HEMOGLOBIN 10.7 GM/dL (11.7-16.9); LYMPH % 22.8 % (8-40); MCH 29.8 pg (25.7-33.7); MCHC 33.8 g/dl (32.0-35.9); MEAN CELL VOLUME 88.3 fl (80-96); MEAN PLT VOLUME 7.3 fl (7.5-11.1); MONO % 8.3 % (3.8-10.2); NEUT % 63.3 % (42.8-82.8); PLATELET COUNT 235 10^3/uL (134-434); RBC 3.59 M/mm3 (4.00-5.60); WHITE BLOOD COUNT 6.8 K/mm3 (4.0-10.0)
[2024-09-28] MEDS: VASopressin 40 UNITS/100 ML BAG IV SCH (22:38)
[2024-09-28 22:45] LABS: CHLORIDE 104 mmol/L (98-107); POTASSIUM 2.8 mmol/L (3.5-5.1); SODIUM 138 mmol/L (136-145)
[2024-09-28 22:48] LABS: ALBUMIN 2.3 g/dl (3.4-5.0); ANION GAP 7 mmol/L (4-13); BLOOD UREA NITROGEN 10.7 mg/dL (7-18); CALCIUM 7.9 mg/dL (8.5-10.1); CO2 27 mmol/L (21-32); GLUCOSE,RANDOM 148 mg/dL (74-106); MAGNESIUM 1.4 mg/dL (1.8-2.4)
[2024-09-28 22:55] LABS: ALK PHOS 57 U/L (45-117); BILIRUBIN,TOTAL 0.7 mg/dL (0.2-1); CREATININE 1.2 mg/dL (0.55-1.3); SGOT/AST 32 U/L (15-37); SGPT/ALT 15 U/L (13-61); TOT PROT 4.6 g/dl (6.4-8.2)
[2024-09-28 23:25] LABS: ALBUMIN 2.3 g/dl (3.4-5.0); ALK PHOS 56 U/L (45-117); ANION GAP 8 mmol/L (4-13); BILIRUBIN,TOTAL 0.7 mg/dL (0.2-1); BLOOD UREA NITROGEN 10.8 mg/dL (7-18); CALCIUM 7.8 mg/dL (8.5-10.1); CHLORIDE 105 mmol/L (98-107); CO2 26 mmol/L (21-32); CREATININE 1.2 mg/dL (0.55-1.3); GLUCOSE,RANDOM 153 mg/dL (74-106); MAGNESIUM 1.5 mg/dL (1.8-2.4); POTASSIUM 2.8 mmol/L (3.5-5.1); SGOT/AST 33 U/L (15-37); SGPT/ALT 15 U/L (13-61); SODIUM 139 mmol/L (136-145); TOT PROT 4.5 g/dl (6.4-8.2)
[2024-09-29] MEDS: FLUDROCORTISONE ACETATE 0.1 MG TABLET (FP) PO SCH (00:56)
[2024-09-29] MEDS: HYDROCORTISONE SOD SUCCINATE 100 MG/2 ML VIAL IVPUSH SCH (00:56)
[2024-09-29] MEDS: MAGNESIUM SULFATE IN WATER 2 GM/50 ML IVPB IVPB ONE (01:02)
[2024-09-29] MEDS: NOREPINEPHRINE BITARTRATE/D5W 8 MG/250 ML BAG IVPB SCH (01:10)
[2024-09-29] MEDS: VASopressin 40 UNITS/100 ML BAG IV SCH (01:15)
[2024-09-29] MEDS: KCL 20 MEQ PREMIX BAG 20 MEQ/100 ML INFUS.BAG IVPB SCH (02:01)
[2024-09-29 06:00] LABS: ARTERIAL BLD GAS O2 SATURATION 99.7 % (95-98); ARTERIAL BLOOD GAS BASE EXCESS -2.8 mmol/L (-2-2); ARTERIAL BLOOD GAS PO2 303.3 mmHg (80-100); ARTERIAL BLOOD GAS pH 7.419 (7.350-7.450)
[2024-09-29 06:02] LABS: VENT MODE A/C; VENT RATE 10
[2024-09-29] MEDS ORDERED: NOREPINEPHRINE BITARTRATE 4 MG/4 ML ML IV ONE (06:28)
[2024-09-29] MEDS ORDERED: DEXTROSE 10%-WATER - 1,000 ML IV SCH (07:11)
[2024-09-29 07:49] LABS: HEMATOCRIT 33.7 % (35.4-49); HEMOGLOBIN 11.8 GM/dL (11.7-16.9); MCH 30.8 pg (25.7-33.7); MEAN PLT VOLUME 7.9 fl (7.5-11.1); PLATELET COUNT 267 10^3/uL (134-434); RBC 3.83 M/mm3 (4.00-5.60); RDW 13.8 % (11.9-15.9)
[2024-09-29 07:58] LABS: MAGNESIUM 2.2 mg/dL (1.8-2.4)
[2024-09-29 08:02] LABS: PHOSPHOROUS 2.3 mg/dL (2.5-4.9)
[2024-09-29 08:07] LABS: N-TERMINAL BNP 10257.8 pg/ml (5-450)
[2024-09-29 08:40] LABS: INR 1.43 (0.83-1.09)
[2024-09-29 08:56] LABS: CALCIUM 7.9 mg/dL (8.5-10.1)
[2024-09-29 08:57] LABS: ALBUMIN 2.5 g/dl (3.4-5.0); BLOOD UREA NITROGEN 12.5 mg/dL (7-18)
[2024-09-29 09:00] LABS: CREATININE 1.2 mg/dL (0.55-1.3); PHOSPHOROUS 2.7 mg/dL (2.5-4.9)
[2024-09-29 09:01] LABS: BILIRUBIN,TOTAL 0.6 mg/dL (0.2-1); TOT PROT 4.9 g/dl (6.4-8.2)
[2024-09-29 10:56] LABS: VENOUS BASE EXCESS -4.7 mmol/L (-2-2); VENOUS O2 SATURATION 87.2 % (70-80); VENOUS PCO2 29.9 mmHg (38-52); VENOUS PH 7.414 (7.310-7.410)
[2024-09-29] MEDS: VANCOMYCIN/WATER FOR INJ (PEG) 1,000 MG/200 ML BAG IVPB SCH (14:38)
[2024-09-29] MEDS: PIPERACILLIN/TAZOB 3.375 GM 3.375 GM in DEXTROSE 5%-WATER - 50 ML IVPB SCH (17:53)
[2024-09-30 08:23] LABS: BASO % 0.1 % (0-2.0); HEMATOCRIT 29.7 % (35.4-49); HEMOGLOBIN 10.1 GM/dL (11.7-16.9); LYMPH % 7.3 % (8-40); MCH 30.2 pg (25.7-33.7); MCHC 34.2 g/dl (32.0-35.9); MEAN CELL VOLUME 88.4 fl (80-96); MEAN PLT VOLUME 8.1 fl (7.5-11.1); MONO % 4.5 % (3.8-10.2); NEUT % 88.1 % (42.8-82.8); PLATELET COUNT 227 10^3/uL (134-434); RBC 3.36 M/mm3 (4.00-5.60); RDW 13.5 % (11.9-15.9); WHITE BLOOD COUNT 10.4 K/mm3 (4.0-10.0)
[2024-09-30 08:44] LABS: POTASSIUM 3.3 mmol/L (3.5-5.1)
[2024-09-30 08:50] LABS: CALCIUM 7.6 mg/dL (8.5-10.1)
[2024-09-30 08:51] LABS: ALBUMIN 2.4 g/dl (3.4-5.0); BLOOD UREA NITROGEN 17.9 mg/dL (7-18); MAGNESIUM 2.1 mg/dL (1.8-2.4)
[2024-09-30 08:54] LABS: BILIRUBIN,TOTAL 0.6 mg/dL (0.2-1); CREATININE 1.5 mg/dL (0.55-1.3); PHOSPHOROUS 3.1 mg/dL (2.5-4.9)
[2024-09-30 08:55] LABS: TOT PROT 4.9 g/dl (6.4-8.2)
[2024-09-30] MEDS: POTASSIUM CHLORIDE ORAL LIQUID 20 MEQ/15 ML NGT SCH (10:20)
[2024-10-01 07:37] LABS: HEMATOCRIT 27.8 % (35.4-49); HEMOGLOBIN 9.4 GM/dL (11.7-16.9); LYMPH % 9.1 % (8-40); MCH 29.7 pg (25.7-33.7); MCHC 33.8 g/dl (32.0-35.9); MEAN CELL VOLUME 88.1 fl (80-96); MEAN PLT VOLUME 8.1 fl (7.5-11.1); MONO % 7.2 % (3.8-10.2); NEUT % 83.7 % (42.8-82.8); PLATELET COUNT 188 10^3/uL (134-434); RBC 3.16 M/mm3 (4.00-5.60); RDW 13.7 % (11.9-15.9); WHITE BLOOD COUNT 11.2 K/mm3 (4.0-10.0)
[2024-10-01 07:55] LABS: POTASSIUM 4.3 mmol/L (3.5-5.1)
[2024-10-01 08:06] LABS: ALBUMIN 2.5 g/dl (3.4-5.0); BLOOD UREA NITROGEN 22.2 mg/dL (7-18); CALCIUM 7.8 mg/dL (8.5-10.1); MAGNESIUM 2.4 mg/dL (1.8-2.4)
[2024-10-01 08:10] LABS: CREATININE 1.4 mg/dL (0.55-1.3)
[2024-10-01 08:11] LABS: BILIRUBIN,TOTAL 0.5 mg/dL (0.2-1); TOT PROT 5.2 g/dl (6.4-8.2)
[2024-10-01 21:06] LABS: VENOUS BASE EXCESS 0.9 mmol/L (-2-2); VENOUS O2 SATURATION 85.3 % (70-80); VENOUS PCO2 40.5 mmHg (38-52); VENOUS PH 7.416 (7.310-7.410)
[2024-10-02 07:48] LABS: POTASSIUM 4.6 mmol/L (3.5-5.1)
[2024-10-02 07:52] LABS: ALBUMIN 2.6 g/dl (3.4-5.0); BLOOD UREA NITROGEN 26.3 mg/dL (7-18); CALCIUM 8.3 mg/dL (8.5-10.1); MAGNESIUM 2.7 mg/dL (1.8-2.4)
[2024-10-02 07:54] LABS: CREATININE 1.3 mg/dL (0.55-1.3); VENOUS BASE EXCESS -0.3 mmol/L (-2-2); VENOUS O2 SATURATION 88.3 % (70-80); VENOUS PCO2 36.4 mmHg (38-52); VENOUS PH 7.433 (7.310-7.410)
[2024-10-02 07:55] LABS: BILIRUBIN,TOTAL 0.4 mg/dL (0.2-1)
[2024-10-02 07:56] LABS: TOT PROT 5.4 g/dl (6.4-8.2)
[2024-10-02 08:25] LABS: BASO % 0.1 % (0-2.0); HEMATOCRIT 27.4 % (35.4-49); HEMOGLOBIN 9.5 GM/dL (11.7-16.9); LYMPH % 9.9 % (8-40); MCH 30.4 pg (25.7-33.7); MCHC 34.8 g/dl (32.0-35.9); MEAN CELL VOLUME 87.2 fl (80-96); MEAN PLT VOLUME 8.3 fl (7.5-11.1); MONO % 7.1 % (3.8-10.2); NEUT % 82.9 % (42.8-82.8); PLATELET COUNT 186 10^3/uL (134-434); RBC 3.14 M/mm3 (4.00-5.60); RDW 13.5 % (11.9-15.9); WHITE BLOOD COUNT 8.1 K/mm3 (4.0-10.0)
[2024-10-02] MEDS: FUROSEMIDE 40 MG/4 ML INJECTABLE VIAL IVPUSH ONE (13:10)
[2024-10-02] MEDS: HEPARIN NA (PORCINE) 5,000 UNITS/ML 1ML VIAL SQ SCH (13:11)
[2024-10-02] MEDS: SODIUM PHOSPHATE - 10 MM in SODIUM CHLORIDE 250 ML IVPB ONE (18:24)
[2024-10-02] MEDS: HYDROCORTISONE SOD SUCCINATE 100 MG/2 ML VIAL IVPUSH SCH (21:06)
[2024-10-03 06:37] LABS: HEMATOCRIT 28.8 % (35.4-49); HEMOGLOBIN 10.1 GM/dL (11.7-16.9); LYMPH % 16.5 % (8-40); MCH 30.8 pg (25.7-33.7); MCHC 34.9 g/dl (32.0-35.9); MEAN CELL VOLUME 88.4 fl (80-96); MEAN PLT VOLUME 8.2 fl (7.5-11.1); MONO % 8.5 % (3.8-10.2); PLATELET COUNT 187 10^3/uL (134-434); RBC 3.26 M/mm3 (4.00-5.60); RDW 13.9 % (11.9-15.9); WHITE BLOOD COUNT 6.6 K/mm3 (4.0-10.0)
[2024-10-03 06:44] LABS: POTASSIUM 4.1 mmol/L (3.5-5.1)
[2024-10-03 06:49] LABS: CALCIUM 8.3 mg/dL (8.5-10.1)
[2024-10-03 06:50] LABS: ALBUMIN 2.7 g/dl (3.4-5.0); BLOOD UREA NITROGEN 32.6 mg/dL (7-18); MAGNESIUM 2.6 mg/dL (1.8-2.4)
[2024-10-03 06:53] LABS: CREATININE 1.4 mg/dL (0.55-1.3)
[2024-10-03 06:55] LABS: BILIRUBIN,TOTAL 0.3 mg/dL (0.2-1); TOT PROT 5.4 g/dl (6.4-8.2)
[2024-10-03 16:23] VITALS: BMI 29.2
[2024-10-03] MEDS: BANATROL PLUS POWDER PACKET GT SCH (21:12)
[2024-10-03] MEDS: HYDROCORTISONE SOD SUCCINATE 100 MG/2 ML VIAL IVPUSH SCH (21:12)
[2024-10-04 07:43] LABS: BASO % 0.1 % (0-2.0); EOS % 0.1 % (0-4.5); HEMATOCRIT 32.8 % (35.4-49); HEMOGLOBIN 10.9 GM/dL (11.7-16.9); LYMPH % 24.4 % (8-40); MCH 30.1 pg (25.7-33.7); MCHC 33.2 g/dl (32.0-35.9); MEAN CELL VOLUME 90.8 fl (80-96); MEAN PLT VOLUME 8.5 fl (7.5-11.1); NEUT % 66.4 % (42.8-82.8); PLATELET COUNT 217 10^3/uL (134-434); RBC 3.62 M/mm3 (4.00-5.60); WHITE BLOOD COUNT 9.6 K/mm3 (4.0-10.0)
[2024-10-04 08:10] LABS: POTASSIUM 3.8 mmol/L (3.5-5.1)
[2024-10-04 08:32] LABS: ALBUMIN 2.7 g/dl (3.4-5.0); BLOOD UREA NITROGEN 33.8 mg/dL (7-18); CALCIUM 8.9 mg/dL (8.5-10.1)
[2024-10-04 08:34] LABS: MAGNESIUM 2.7 mg/dL (1.8-2.4)
[2024-10-04 08:35] LABS: PHOSPHOROUS 3.2 mg/dL (2.5-4.9)
[2024-10-04 08:37] LABS: BILIRUBIN,TOTAL 0.4 mg/dL (0.2-1); CREATININE 1.4 mg/dL (0.55-1.3); TOT PROT 5.6 g/dl (6.4-8.2)
[2024-10-04] MEDS: DEXTROSE 5%-WATER - 1,000 ML IV SCH (09:47)
[2024-10-05 07:18] LABS: BASO % 0.1 % (0-2.0); EOS % 6.1 % (0-4.5); HEMATOCRIT 34.1 % (35.4-49); HEMOGLOBIN 11.1 GM/dL (11.7-16.9); LYMPH % 30.9 % (8-40); MCH 29.5 pg (25.7-33.7); MCHC 32.7 g/dl (32.0-35.9); MEAN CELL VOLUME 90.4 fl (80-96); MEAN PLT VOLUME 8.5 fl (7.5-11.1); MONO % 7.1 % (3.8-10.2); NEUT % 55.8 % (42.8-82.8); PLATELET COUNT 217 10^3/uL (134-434); RBC 3.77 M/mm3 (4.00-5.60); RDW 13.8 % (11.9-15.9); WHITE BLOOD COUNT 9.7 K/mm3 (4.0-10.0)
[2024-10-05 07:55] LABS: ALBUMIN 2.4 g/dl (3.4-5.0); BILIRUBIN,TOTAL 0.4 mg/dL (0.2-1); BLOOD UREA NITROGEN 27.5 mg/dL (7-18); CALCIUM 8.3 mg/dL (8.5-10.1); CREATININE 1.1 mg/dL (0.55-1.3); MAGNESIUM 2.4 mg/dL (1.8-2.4); PHOSPHOROUS 3.3 mg/dL (2.5-4.9); POTASSIUM 3.5 mmol/L (3.5-5.1)
[2024-10-05] MEDS: LEVOTHYROXINE SODIUM 100 MCG 5 ML VIAL IVPUSH SCH (18:22)
[2024-10-06 07:52] LABS: BASO % 0.2 % (0-2.0); HEMATOCRIT 34.2 % (35.4-49); HEMOGLOBIN 11.4 GM/dL (11.7-16.9); LYMPH % 29.8 % (8-40); MCHC 33.3 g/dl (32.0-35.9); MEAN CELL VOLUME 90.2 fl (80-96); MEAN PLT VOLUME 8.8 fl (7.5-11.1); MONO % 7.1 % (3.8-10.2); NEUT % 50.9 % (42.8-82.8); PLATELET COUNT 213 10^3/uL (134-434); RBC 3.79 M/mm3 (4.00-5.60); RDW 14.4 % (11.9-15.9); WHITE BLOOD COUNT 9.8 K/mm3 (4.0-10.0)
[2024-10-06 08:04] LABS: POTASSIUM 3.3 mmol/L (3.5-5.1)
[2024-10-06 08:09] LABS: ALBUMIN 2.2 g/dl (3.4-5.0)
[2024-10-06 08:10] LABS: BLOOD UREA NITROGEN 25.2 mg/dL (7-18); CALCIUM 8.1 mg/dL (8.5-10.1)
[2024-10-06 08:11] LABS: MAGNESIUM 2.5 mg/dL (1.8-2.4)
[2024-10-06 08:13] LABS: CREATININE 1.1 mg/dL (0.55-1.3); PHOSPHOROUS 2.8 mg/dL (2.5-4.9)
[2024-10-06 08:14] LABS: BILIRUBIN,TOTAL 0.2 mg/dL (0.2-1); TOT PROT 4.8 g/dl (6.4-8.2)
[2024-10-06] MEDS: KCL 10 MEQ IVPB 10 MEQ/100 ML INFUS.BAG IVPB SCH (09:21)
[2024-10-06] MEDS: SODIUM CHLORIDE 500 ML IV STA (16:23)
[2024-10-06] MEDS ORDERED: SODIUM CHLORIDE 500 ML IV STA (17:08)
[2024-10-06] MEDS: MIDODRINE HCL 5 MG TABLET PO SCH (19:24)
[2024-10-07 08:20] LABS: BASO % 0.2 % (0-2.0); EOS % 11.6 % (0-4.5); HEMATOCRIT 31.4 % (35.4-49); HEMOGLOBIN 10.6 GM/dL (11.7-16.9); MCH 30.1 pg (25.7-33.7); MCHC 33.7 g/dl (32.0-35.9); MEAN CELL VOLUME 89.2 fl (80-96); MEAN PLT VOLUME 9.2 fl (7.5-11.1); NEUT % 52.2 % (42.8-82.8); PLATELET COUNT 213 10^3/uL (134-434); RBC 3.52 M/mm3 (4.00-5.60); RDW 14.1 % (11.9-15.9)
[2024-10-07 16:34] LABS: CHLORIDE 110 mmol/L (98-107); POTASSIUM 4.1 mmol/L (3.5-5.1); SODIUM 144 mmol/L (136-145)
[2024-10-07 16:36] LABS: ALBUMIN 2.3 g/dl (3.4-5.0); ANION GAP 3 mmol/L (4-13); BLOOD UREA NITROGEN 19.3 mg/dL (7-18); CALCIUM 8.3 mg/dL (8.5-10.1); CO2 30 mmol/L (21-32); GLUCOSE,RANDOM 82 mg/dL (74-106)
[2024-10-07 16:39] LABS: CREATININE 0.9 mg/dL (0.55-1.3); SGOT/AST 38 U/L (15-37); SGPT/ALT 26 U/L (13-61)
[2024-10-07 16:40] LABS: PHOSPHOROUS 3.1 mg/dL (2.5-4.9)
[2024-10-07 16:41] LABS: BILIRUBIN,TOTAL < 0.1 mg/dL (0.2-1); TOT PROT 4.7 g/dl (6.4-8.2)
[2024-10-07 16:42] LABS: ALK PHOS 58 U/L (45-117)
[2024-10-08 07:35] LABS: HEMATOCRIT 31.3 % (35.4-49); HEMOGLOBIN 10.5 GM/dL (11.7-16.9); MCH 29.7 pg (25.7-33.7); MCHC 33.4 g/dl (32.0-35.9); MEAN CELL VOLUME 88.8 fl (80-96); MEAN PLT VOLUME 9.3 fl (7.5-11.1); PLATELET COUNT 213 10^3/uL (134-434); RBC 3.52 M/mm3 (4.00-5.60); RDW 14.2 % (11.9-15.9); WHITE BLOOD COUNT 8.8 K/mm3 (4.0-10.0)
[2024-10-08 07:56] LABS: POTASSIUM 4.4 mmol/L (3.5-5.1)
[2024-10-08 08:02] LABS: BLOOD UREA NITROGEN 15.7 mg/dL (7-18); CALCIUM 8.4 mg/dL (8.5-10.1); MAGNESIUM 2.5 mg/dL (1.8-2.4)
[2024-10-08 08:06] LABS: CREATININE 0.9 mg/dL (0.55-1.3); PHOSPHOROUS 3.5 mg/dL (2.5-4.9)
[2024-10-08] MEDS: AMINO ACIDS/PROTEIN HYDROLYS 30 ML LIQUID.PKT PEG SCH (17:15)
[2024-10-09 07:19] LABS: CALCIUM 8.4 mg/dL (8.5-10.1)
[2024-10-09 07:20] LABS: BLOOD UREA NITROGEN 19.7 mg/dL (7-18); MAGNESIUM 2.4 mg/dL (1.8-2.4)
[2024-10-09 07:24] LABS: PHOSPHOROUS 3.8 mg/dL (2.5-4.9)
[2024-10-09 07:42] LABS: HEMATOCRIT 33.3 % (35.4-49); MCH 29.5 pg (25.7-33.7); MEAN CELL VOLUME 89.6 fl (80-96); RBC 3.71 M/mm3 (4.00-5.60); RDW 14.3 % (11.9-15.9); WHITE BLOOD COUNT 11.1 K/mm3 (4.0-10.0)
[2024-10-09] MEDS: MULTIVITAMINS (DAILY MVI) TABLET (FP) NR SCH (08:41)
[2024-10-09] MEDS: SCOPOLAMINE HYDROBROMIDE 1 PATCH PATCH.TD72 TD SCH (12:57)
[2024-10-09] MEDS: MORPHINE 100mg/NS INFUSION 100 MG/100 ML MG IVPB SCH (12:57)
[2024-10-09] MEDS: MIDAZOLAM HCL 2 MG/2 ML SINGLE DOSE VIAL IVPUSH ONE (12:57)
[2024-10-09 16:03] VITALS: BP 121/71; PULSE 70; RESP 16; TEMP 99
[2024-10-10] MEDS: LORazepam 2 MG/ML SDV VIAL IVPUSH PRN (10:01)
[2024-10-10] MEDS ORDERED: LORazepam 40 MG in DEXTROSE 5%-WATER - 230 ML IVPB SCH (11:30)
[2024-10-10] MEDS: SODIUM CHLORIDE IVPB SCH (11:31)
[2024-10-10] MEDS: LORAZEPAM IVPB SCH (11:31)
== END 2024-10-10 12:28 | disposition expired | DRG 870 ==
LOC: JER 09:27 → JERBED 13:13 → JICU 14:27
PROVIDERS: ADMIT Internal Medicine Pulmonary Disease; ATTEND Internal Medicine Pulmonary Disease
PROC: 5A1955Z Respiratory Ventilation, Greater than 96 Consecutive Hours (ICD-10-PCS; principal; 2024-09-28)
PROC: 0BH17EZ Insertion of Endotracheal Airway into Trachea, Via Natural or Artificial Opening (ICD-10-PCS; 2024-09-28)
PROC: 05HN33Z Insertion of Infusion Device into Left Internal Jugular Vein, Percutaneous Approach (ICD-10-PCS; 2024-09-28)
PROC: B544ZZA Ultrasonography of Left Jugular Veins, Guidance (ICD-10-PCS; 2024-09-28)
DX: A41.9 Sepsis, unspecified organism (principal); I21.4 Non-ST elevation (NSTEMI) myocardial infarction; R65.21 Severe sepsis with septic shock; J18.9 Pneumonia, unspecified organism; J96.01 Acute respiratory failure with hypoxia; I50.21 Acute systolic (congestive) heart failure; N39.0 Urinary tract infection, site not specified; E87.20 Acidosis, unspecified; G93.1 Anoxic brain damage, not elsewhere classified; E87.0 Hyperosmolality and hypernatremia; F03.90 Unspecified dementia, unspecified severity, without behavioral disturbance, psychotic disturbance, mood disturbance, and anxiety; R57.0 Cardiogenic shock; E16.2 Hypoglycemia, unspecified; E78.5 Hyperlipidemia, unspecified; I10 Essential (primary) hypertension; E83.41 Hypermagnesemia; E83.39 Other disorders of phosphorus metabolism; R31.9 Hematuria, unspecified; E03.9 Hypothyroidism, unspecified
CPT/HCPCS: 0241U-QW; 36415; 36600; 70450-TC; 71045-TC-FY; 80048; 80053; 80061; 81003; 82140; 82272; 82550; 82553; 82607; 82728; 82746; 82803; 82962; 83036; 83540; 83550; 83605; 83735; 83880; 84100; 84466; 84484; 84681; 85025; 85027; 85045; 85610; 85730; 87040; 87070; 87077; 87086; 87205; 87481; 87493; 87899; 93005; 93010; 93306-TC; 94002; 95816; 99291; J1250; J1644; J3370; J3490